=== PATIENT | female | born 1985 | race Caucasian/White ===

== ENCOUNTER 2023-03-12 12:21 | Emergency (ER) | payer SELFPAY ==
--- NOTE | ~2023-03-12 | XR_ITS ---
EXAMINATION: XR HAND, RIGHT CLINICAL INFORMATION: Right thumb pain/swelling COMPARISON: None available. TECHNIQUE: PA, lateral, and oblique views of the right hand. FINDINGS: The bones are intact. No fracture. Negative ulnar variance is noted. Joint spaces are maintained. No erosions or soft tissue calcifications. XR/XR hand RT min 3V IMPRESSION: No acute bony abnormality.
--- NOTE | 2023-03-12 12:38 | ED_ITS ---
HPI - Extremity Injury (Upper) General Chief Complaint: Extremity Injury, Upper Stated Complaint: Pain in thumb Time Seen by Provider: 03/12/23 12:51 Source: patient Mode of arrival: ambulatory Limitations: no limitations History of Present Illness HPI narrative: 37-year-old female presents with right thumb pain ongoing for the past week. Patient reports it is worse with movement, better at rest. Patient denies any associated trauma. She reports the distal aspect of her thumb. 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 Reports pain is severe. However she can not take NSAIDs secondary to bleeding ulcers. Patient tells me she is in a lot of pain. She is uncomfortable. Denies new numbness or tingling, fevers or chills. Related Data Previous Rx's Medication Instructions Recorded morphine 15 mg immediate release 15 mg PO Q6H PRN pain 5 days #10 03/12/23 tablet tabs prednisone 50 mg tablet 50 mg PO DAILY 5 days #5 tabs 03/12/23 Allergies Allergy/AdvReac Type Severity Reaction Status Date / Time Cephalosporins Allergy Anaphylaxis Verified 03/12/23 12:38 ciprofloxacin [From Cipro] Allergy Diarrhea Verified 03/12/23 12:39 latex Allergy Anaphylaxis Verified 03/12/23 12:38 Review of Systems Review of Systems: Constitutional : No Weight loss, No Fever, No Chills, No Fatigue, No Malaise ENT/Mouth : No sore throat, No Rhinorrhea Eyes: No Eye Pain, No Swelling, No Redness Cardiovascular : No Chest Pain, No SOB, No Dyspnea on Exertion, No Orthopnea, No Edema, No Palpitations Respiratory : No Cough, No Sputum, No Wheezing Gastrointestinal : No Nausea, No Vomiting, No Diarrhea, No Constipation, No abdominal Pain, No Hematochezia, No Melena Genitourinary : No Dysuria, No Urinary Frequency, No Hematuria, Musculoskeletal : + joint pain, No Myalgias, + Joint Swelling Skin : No Skin Lesions, No rash Neuro : No Weakness, No Numbness, No Dizziness, No Headache Psych : No Anxiety/Panic, No Depression All other systems reviewed and are negative Yes all other systems are reviewed and are negative PMFSH Past Medical History Attestation statement: The following information was validated with the patient. Source: old records reviewed and nursing notes reviewed Physical Exam Vital Signs: Vital Signs: Last Vital Signs Temp 98.2 F 03/12/23 12:39 Pulse 78 03/12/23 12:39 Resp 18 03/12/23 12:39 BP 110/71 03/12/23 12:39 Pulse Ox 96 03/12/23 12:39 O2 Del Method Room Air 03/12/23 12:39 BMI result Body Mass Index 20.6 Course Course Course Narrative: RME: 37yo F w/no sig PMHx c/o right thumb pain and swelling x1 week. reports low grade fever and chills +swelling and ttp to R thumb PIP. decreased ROM from pain. +hard to palpation, no fluctance or pointing XRs ordered Full HPI, ROS and PE to be performed by primary ED provider. Reevaluation(s) Reevaluation #1: Patient is in the lot of pain she has a history of bleeding ulcers. Nothing seems to be making the pain better. I explained to her NSAIDs increased risk of bleeding ulcers therefore not safe to give Toradol, naproxen or meloxicam. Will send a short script of morphine, went over safe narcotic taking, at outlined this on her discharge as well. Patient will be given morphine for home. And prednisone. Orthopedic outpatient recommended. Educated patient on diagnosis and treatment plan, answered all question, patient verbalizes understanding. At this time patient will be discharged home, advised to return with new or worsening symptoms. Educated on worrisome signs and symptoms and when to return. At this time I feel comfortable discharge home. Time: 13:04 Medical Decision Making Medical Decision Making [facility] Narrative: 37-year-old female presents with right thumb pain she is concerned it may be an abscess. Times about a week Physical exam +swelling and ttp to R thumb PIP. decreased ROM from pain. +hard to palpation, no fluctance History and physical exam concerning for gout versus pseudogout versus inflammatory arthritis. Unlikely abscess, neurovascular compromise, threat to Fox, arterial or venous occlusion, no signs of septic joint. No trauma unlikely fracture dislocation X-ray ordered from waiting room Differential Diagnosis Differential Diagnoses: The differential diagnosis associated with the pre sentation includes History and physical exam concerning for gout versus pseudogout versus inflammatory arthritis. Unlikely abscess, neurovascular compromise, threat to Fox, arterial or venous occlusion, no signs of septic joint. No trauma unlikely fracture dislocation Admission/Observation Consideration of admission/observation: Escalation of care including admission/observation considered Unlikely Independent Interpretation I performed an independent interpretation of an: Plain X-Ray Radiology Impression Discussion of test interpretation with radiology: I have reviewed the radiologist's reading. Prescription Management I considered prescription management with: Pain Medication Discharge Plan Discharge Clinical Impression: Inflammatory arthritis Patient Disposition: Home, Self-Care Instructions: Osteoarthritis (DC) Additional Instructions: Take your medications as prescribed. If you were prescribed antibiotics today, it is important that you take your medication to their entirety, do not skip any doses, do not finish them early. Follow-up with your primary care provider this week. Follow-up with orthopedics as needed Return to the emergency department with new or worsening symptoms. Such as fevers, chills, chest pain, shortness of breath, nausea, vomiting, dizziness, headache, vision changes, lethargy In case of emergency call 911 A narcotic has been sent to your pharmacy please take this as prescribed. Do not take more than the prescribed dose. Narcotic medications can cause addiction. Please do not mix them with alcohol. Do not take them while driving or operating machinery. Do not take them with any other narcotics. Do not share them with friends or family. They can cause constipation. Take them only for severe pain. Prescriptions: New prednisone 50 mg tablet 50 mg PO DAILY 5 Days Qty: 5 0RF morphine 15 mg tablet 15 mg PO Q6H PRN (Reason: pain) 5 Days Qty: 10 0RF Rx Instructions: Partial Fill upon patient request. Referrals: [facility] [Provider Group] - 1 week Gypsy Parra MD [Primary Care Provider] - 2 days Stand Alone Forms: Work/School Release
[2023-03-12 12:39] VITALS: BP 110/71; PULSE 78; RESP 18; TEMP 36.8; O2SAT 96; BMI 20.6
== END 2023-03-12 13:39 | disposition home or self-care (01) ==
PROVIDERS: Emergency Provider Emergency Medicine Emergency Medical Services; PCP Internal Medicine
DX: M18.9 Osteoarthritis of first carpometacarpal joint, unspecified (principal)
CPT/HCPCS: 73130; 99283

== ENCOUNTER 2023-05-29 21:32 | Emergency (ER) | payer OTHER, SELFPAY ==
--- NOTE | ~2023-05-29 | XR_ITS ---
EXAMINATION: XR ANKLE, LEFT CLINICAL INFORMATION: Evaluate for lateral malleolar fracture. Trauma, pain. COMPARISON: None available. TECHNIQUE: AP, lateral, and mortise views of the left ankle. FINDINGS: No fracture or subluxation. Nonspecific soft tissue swelling. No unexpected radiopaque foreign bodies. XR/XR ankle LT 2V IMPRESSION: 1. No acute fracture or malalignment. 2. Nonspecific soft tissue swelling.
[2023-05-29 22:08] VITALS: BP 139/75; PULSE 100; RESP 18; TEMP 36.2; O2SAT 97; BMI 20.9
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
[2023-05-30 00:12] VITALS: BP 101/56; PULSE 89; RESP 16; TEMP 36.8; O2SAT 100
[2023-05-30 01:23] VITALS: BP 119/65; PULSE 97; RESP 20; TEMP 37.3; O2SAT 97
[2023-05-30] MEDS: diazePAM 2 MG TABLET PO (01:23)
== END 2023-05-30 01:26 | disposition home or self-care (01) ==
PROVIDERS: Emergency Provider Emergency Medicine; PCP Internal Medicine
DX: S90.02XA Contusion of left ankle, initial encounter (principal); Y29.XXXA Contact with blunt object, undetermined intent, initial encounter; Y93.9 Activity, unspecified; Y92.481 Parking lot as the place of occurrence of the external cause; Y99.0 Civilian activity done for income or pay
CPT/HCPCS: 73600; 99283; 99284

== ENCOUNTER 2023-06-24 12:17 | Outpatient (AMB) | payer OTHER, SELFPAY ==
[2023-06-24 12:28] VITALS: BP 118/78; PULSE 109; O2SAT 99
--- NOTE | 2023-06-24 12:28 | MHC.OFFWIV ---
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 Patient Tobacco Use Status: Never used Tobacco Allergies Cephalosporins Allergy (Verified 06/24/23 12:29) Anaphylaxis ciprofloxacin [From Cipro] Allergy (Verified 06/24/23 12:29) Diarrhea latex Allergy (Verified 06/24/23 12:29) Anaphylaxis Medication List - Last Reconciled 06/24/23 by Vickie Wyman MD acetaminophen 500 mg PO Q6H PRN Do you need a note to return to daycare/school/sports/work: Yes HPI WINCH STRIPPER ?UTI HPI Details Patient is a 37-year-old female came in today to be evaluated for possible bladder infection Patient has been having symptoms for the past few days, she noticed blood in her urine yesterday Along with some discomfort left mid back Urine test shows positive leuk esterase 2+ and blood 3+ I am treating her with Macrobid 100 mg b.i.d. 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 Review system: No fever chills nausea vomiting chest pain shortness for breath PFSH Medical History Peptic ulcer disease Social History Patient Tobacco Use Status: Never used Tobacco Review of Systems Const All systems reviewed & are unremarkable except as noted in HPI and below Physical Exam Vital Signs: Last Vital Signs Pulse 109 H 06/24/23 12:28 BP 118/78 06/24/23 12:28 Pulse Ox 99 06/24/23 12:28 Oxygen Delivery Method Room Air 06/24/23 12:28 BMI result Body Mass Index 20.0 Const General: no acute distress Orientation/consciousness: patient oriented x3 Eyes General: appearance normal, both eyes and all related structures Resp Effort & Inspection: normal respiratory effort and able to speak in complete sentences Auscultation: clear to auscultation bilaterally General: Yes CVA tenderness (Left side) Back/Spine/Pelvis Back: CVA tenderness (Left side) Neuro General: patient oriented x3 Psych Mental Status: mental status grossly normal Results AMB Urinalysis, Automated UA Leukoctes 125 Hiram/uL Last Edit by Laura Lares MA on 06/24/23 12:38 UA Nitrite Negative Last Edit by Laura Lares MA on 06/24/23 12:38 UA Urobilinogen 0.2 mg/dL Last Edit by Laura Lares MA on 06/24/23 12:38 UA Protein 15 mg/dL Last Edit by Laura Lares MA on 06/24/23 12:38 UA pH 6.0 Last Edit by Laura Lares MA on 06/24/23 12:38 UA Blood 200 Darshan/uL Last Edit by Laura Lares MA on 06/24/23 12:38 UA Specific [place] 1.015 Last Edit by Laura Lares MA on 06/24/23 12:38 UA Ketone Negative Last Edit by Laura Lares MA on 06/24/23 12:38 UA Bilirubin mg/dL Last Edit by Laura Lares MA on 06/24/23 12:38 UA Glucose mg/dL Last Edit by Laura Lares MA on 06/24/23 12:38 Results Reviewed Results Reviewed: Laboratory Last Values Urine pH (Auto) 6.0 06/24/23 12:37 Specific [place] (Auto) 1.015 06/24/23 12:37 Urine Protein (Auto) 15 mg/dL 06/24/23 12:37 Urine Ketones (Auto) Negative 06/24/23 12:37 Urine Blood (Auto) 200 Darshan/uL 06/24/23 12:37 Urine Nitrite (Auto) Negative 06/24/23 12:37 Urine Urobilinogen (Auto) 0.2 mg/dL 06/24/23 12:37 Leukocyte Esterase (Auto) 125 Hiram/uL 06/24/23 12:37 Assessment & Plan Assessment & Plan (1) Acute pyelonephritis: Code(s): N10 - Acute pyelonephritis (2) Acute cystitis: Code(s): N30.00 - Acute cystitis without hematuria Qualifiers: Hematuria presence: with hematuria Qualified Code(s): N30.01 - Acute cystitis with hematuria Plan Patient is a 37-year-old female came in today to be evaluated for possible bladder infection Patient has been having symptoms for the past few days, she noticed blood in her urine yesterday Along with some discomfort left mid back Urine test shows positive leuk esterase 2+ and blood 3+ I am treating her with Macrobid 100 mg b.i.d. 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 Review system: No fever chills nausea vomiting chest pain shortness for breath Orders: Orders Urine Culture Today N30.00 - Acute cystitis without hematuria Medications: New nitrofurantoin monohyd/m-cryst 100 mg (Macrobid) must administer with a meal/food 100 mg PO Q12H 14 caps 0RF 7 days Discontinued prednisone Discontinued Reason: Patient Completed Course 50 mg PO DAILY 5 days 5 tabs 0RF cyclobenzaprine Discontinued Reason: Patient no longer taking 5 mg PO TID PRN 7 tabs 0RF muscle spasm tramadol Discontinued Reason: Patient no longer taking 50 mg PO BID PRN 4 tabs 0RF pain Coding Level of Care Code New Pt Level 4 (29723) Diagnoses Acute pyelonephritis N10 Acute cystitis with hematuria N30.01 Hematuria presence: with hematuria
== END 2023-06-24 12:59 | disposition home or self-care (01) ==
PROVIDERS: PCP Internal Medicine; Visit Provider Internal Medicine
DX: N10 Acute pyelonephritis (principal); N30.01 Acute cystitis with hematuria
CPT/HCPCS: 99204

== ENCOUNTER 2023-06-24 16:09 | Outpatient (REF) | payer OTHER, SELFPAY | END 2023-06-24 16:10 | disposition home or self-care (01) | LOC: HO.LNP 16:09 | PROVIDERS: Visit Provider Internal Medicine | DX: N30.00 Acute cystitis without hematuria (principal) | CPT/HCPCS: 87086; 87088; 87186 ==

== ENCOUNTER 2023-12-03 04:58 | Emergency (ER) | payer MEDICAID, SELFPAY ==
--- NOTE | ~2023-12-03 | XR_ITS ---
EXAMINATION: XR CHEST CLINICAL INFORMATION: Shortness of breath. COMPARISON: None available. TECHNIQUE: Frontal view of the chest was obtained. FINDINGS: No significant abnormality is noted involving the heart, lungs, mediastinum, bony thorax or soft tissues. XR/XR chest 1V IMPRESSION: Unremarkable examination. Electronically signed by: Sanjiv Escobar MD 12/03/2023 06:08 AM EDT
[2023-12-03 05:06] VITALS: BP 123/74; PULSE 75; RESP 18; TEMP 36.9; O2SAT 99; BMI 22.1
[2023-12-03 05:43] LABS: Hematocrit 36.8 % (37.0-47.0); Hemoglobin 12.7 g/dl (12.0-16.0); Mean Corpuscular HGB Conc 34.5 g/dl (31.0-35.0); Mean Corpuscular Volume 92.7 fL (80.0-98.0); Mean Platelet Volume 9.2 fL (9.4-12.3); Platelet Count 174 X10*3/uL (160-400); Red Blood Count 3.97 X10*6/uL (4.20-5.50); Red Cell Distribution Width 12.6 % (11.0-16.0)
[2023-12-03 05:48] LABS: White Blood Count 2.2 X10*3/uL (4.8-10.8)
[2023-12-03 05:55] LABS: Anion Gap 11 (12-20); Blood Urea Nitrogen 5 mg/dL (9-16); Calcium 8.6 mg/dL (8.4-10.2); Carbon Dioxide 25 mmol/L (22-29); Chloride 107 mmol/L (96-108); Creatinine Clr Calc Pharmacy 88.5; Estimated Glomerular Filt Rate > 60; Glucose Random 99 mg/dL (60-115); Potassium 3.7 mmol/L (3.3-5.1); Sodium 139 mmol/L (135-145)
--- NOTE | 2023-12-03 06:07 | MHC.EDTECH ---
This Tech assumed care of this pt upon arrival. pt changed over into a hospital gown. bloodwork sent to the lab for processing
[2023-12-03 06:20] LABS: Influenza A PCR POSITIVE (Negative); Influenza B PCR NEGATIVE (Negative); Resp Syncy Virus RNA Qual PCR NEGATIVE (Negative); SARS COV2 PCR INHOUSE NEGATIVE (Negative)
[2023-12-03 06:22] VITALS: BP 121/72; PULSE 72; RESP 16; TEMP 36.7; O2SAT 98
--- NOTE | 2023-12-03 06:43 | ED_ITS ---
HPI - General Adult General Chief complaint: Upper Respiratory Symptoms Stated complaint: SoB Time Seen by Provider: 12/03/23 06:39 Source: patient Mode of arrival: ambulatory Limitations: no limitations History of Present Illness ED Provider: Kecia Witt PA-C HPI narrative: Patient is a 38 year old assigned female at with a history of RA presenting to the emergency department today with cough and bilateral hand pain. Patient states that over the last 3 days she has had a cough and bilateral thumb pain. Patient states that the last time she was here she was given prednisone and pain medication that helped her hands significantly. Patient denies any dizziness, lightheadedness, abdominal pain, nausea, vomiting, fever, chills, blurry vision, double vision, loss of vision, chest pain, difficulty breathing, shortness of breath, back pain, night sweats, pain with urination, increased urinary frequency, increased urinary urgency, blood in her urine or stool, syncope or a near syncopal episode, recent trauma or falls, bowel incontinence, bladder incontinence, or any other complaints at this time. Onset (ago): day(s) (3) Relieving factors: none Exacerbating factors: none Associated symptoms: cough Treatments prior to arrival: none Related Data Previous Rx's ?Medication ?Instructions ?Recorded acetaminophen 500 mg tablet 500 mg PO Q6H PRN fever or pain 05/30/23 #20 tabs nitrofurantoin 100 mg PO Q12H 7 days #14 caps 06/24/23 monohydrate/macrocrystals 100 mg capsule (Macrobid) benzonatate 100 mg capsule 100 mg PO BID PRN cough 7 days #14 12/03/23 caps prednisone 20 mg tablet 50 mg (2.5 x 20 mg) PO DAILY 5 12/03/23 days #13 tabs tramadol 50 mg tablet 50 mg PO DAILY #3 tabs 12/03/23 Allergies Allergy/AdvReac Type Severity Reaction Status Date / Time Cephalosporins Allergy Anaphylaxis Verified 12/03/23 05:12 ciprofloxacin [From Cipro] Allergy Diarrhea Verified 12/03/23 05:12 latex Allergy Anaphylaxis Verified 12/03/23 05:12 Review of Systems 2 Constitutional: Constitutional: Reports no additional constitutional complaints, Denies chills, Denies fever(s) and Denies night sweats Eyes: Eyes: Reports no additional eye complaints, Denies blurry vision, Denies change in vision, Denies diplopia, Denies eye discharge, Denies loss of vision and Denies eye pain ENT: Denies dizziness Cardiovascular: Cardiovascular: Reports no additional cardiovascular complaints, Denies chest pain, Denies lightheadedness, Denies Loss of Consciousness and Denies dyspnea Respiratory: Respiratory: Reports no additional respiratory complaints, Reports cough and Denies dyspnea Gastrointestinal: Gastrointestinal: Reports no additional gastrointestinal complaints, Denies abdominal pain, Denies melena, Denies hematochezia, Denies change in bowel habits and Denies change in stool character Genitourinary: Genitourinary: Denies hematuria, Denies urinary frequency, Denies dysuria, Denies urinary incontinence, Denies urinary hesitancy and Denies urinary urgency Musculoskeletal: Musculoskeletal: Reports no additional musculoskeletal complaints, Denies numbness and Denies tingling Comments: bilateral hand pain Neurologic: Denies dizziness, Denies loss of vision, Denies numbness and Denies tingling Psychiatric: Psychiatric: Reports no additional psychiatric complaints Endocrine: Endocrine: Reports no additional endocrine complaints Hematologic/Lymphatic: Hematologic/Lymphatic: Reports no additional hematologic/lymphatic complaints Allergic/Immunologic: Allergic/Immunologic: Reports no additional allergic/immunologic complaints [facility] Past Medical History Attestation statement: The following information was validated with the patient. Source: old records reviewed and nursing notes reviewed Medical History Peptic ulcer disease Social History Social History Patient Tobacco Use Status: Never used Tobacco Advance Directives: No Advance Directives Information Provided: No Do you have a plan to hurt others: No Plan Physical Exam ED Vital Signs: Vital Signs - 24 hr 12/03/23 05:06 12/03/23 06:22 Temperature 98.4 F 98.1 F Pulse Rate 75 72 Respiratory Rate 18 16 Blood Pressure 123/74 121/72 Pulse Oximetry 99 98 Oxygen Delivery Method Room Air Room Air BMI result Body Mass Index 22.1 Const General: cooperative, no acute distress, alert and awake Nutritional Appearance: well nourished Orientation/consciousness: patient oriented x3 Limitations: no limitations HENMT Head: Yes normal to inspection and Yes atraumatic Ears: hearing grossly normal bilaterally and external ears normal General nose exam: Normal external nose present, no nasal discharge noted and no epistaxis Face and sinus: Yes normal facial exam, No abrasion and No laceration Mouth: Normal oral and palatal mucosa present, no drooling and no muffled voice Eyes General: appearance normal, both eyes and all related structures Periorbital: periorbital findings normal Eyelids: Yes eyelids normal Conjunctivae: conjunctivae normal Pupils: Equal, round and reactive pupils present EOM: EOMs intact bilaterally Neck Neck: Yes normal visual inspection, Yes full ROM and Yes no lymphadenopathy Chest Chest palpation & inspection: normal inspection of the chest Resp Effort & Inspection: normal respiratory effort and able to speak in complete sentences GI Inspection: Yes normal to inspection Neuro General: patient oriented x3 and moves all extremities Cranial nerves: Yes Equal, round and reactive pupils present Cognition (Neuro): normal cognition Extrem General: Yes normal to inspection, Yes full ROM and Yes capillary refill normal Psych Appearance: grossly normal Mental Status: mental status grossly normal Affect: normal affect Attitude: cooperative Thought process: Normal thought process present Thought content: Normal thought content present Insight: Good insight present (Psych) Medical Decision Making Medical Decision Making MDM Narrative: Patient is a 38 year old assigned female at with a history of RA presenting to the emergency department today with a cough and bilateral hand pain. Patient's physical exam was unremarkable. Patient's blood work was unremarkable. Patient's chest x-ray showed no acute process. Patient's COVID-19 and RSV tests were negative. Patient's Influenza test was positive. I explained my physical exam findings as well as all test results to the patient. I answered all questions asked by the patient. I stressed the importance of the patient taking her medication as directed (either prescribed or as the over the counter packaging recommends). I stressed the importance of the patient following up with her primary care provider. I stressed the importance of the patient returning to the emergency department immediately if her symptoms were to worsen or if she were to develop any dizziness, shortness of breath, difficulty breathing, chest pain, blurry vision, loss of vision, nausea, vomiting, abdominal pain, fever, chills, back pain, or any other complaints. Patient verbalized agreement and understanding with this treatment plan and discharge. Differential Diagnosis Differential Diagnoses: The differential diagnosis associated with the presentation includes Arthritis flare Joint pain COVID-19 Influenza RSV URI Admission/Observation Consideration of admission/observation: Escalation of care including admission/observation considered Patient would have been admitted to the hospital had her work up had any findings where hospital admission was appropriate and her clinical presentation warranted hospital admission. Lab Data [facility] Lab Attestation statement: I reviewed the patient's lab results. My interpretation of these results are in the [facility] Rationale portion of this note. 12/03/23 05:38 12/03/23 05:38 Labs: Lab Results 12/03/23 Range/Units 05:38 WBC 2.2 L (4.8-10.8) X10*3/uL RBC 3.97 L (4.20-5.50) X10*6/uL Hgb 12.7 (12.0-16.0) g/dl Hct 36.8 L (37.0-47.0) % MCV 92.7 (80.0-98.0) fL MCH 32.0 (27.0-33.0) pg MCHC 34.5 (31.0-35.0) g/dl RDW 12.6 (11.0-16.0) % Plt Count 174 (160-400) X10*3/uL MPV 9.2 L (9.4-12.3) fL Absolute Nucleated RBC 0.000 (0.0-0.012) X10*3/uL Nucleated RBC % (auto) 0.0 (0.0-0.2) /100WBC Sodium 139 (135-145) mmol/L Potassium 3.7 (3.3-5.1) mmol/L Chloride 107 (96-108) mmol/L Carbon Dioxide 25 (22-29) mmol/L Anion Gap 11 L (12-20) BUN 5 L (9-16) mg/dL Creatinine 0.72 (0.5-1.4) mg/dL Estim Creat Clear Calc 88.5 Estimated GFR > 60 Random Glucose 99 (60-115) mg/dL Calcium 8.6 (8.4-10.2) mg/dL Influenza Type A (PCR) POSITIVE A (Negative) Influenza Type B (PCR) NEGATIVE (Negative) RSV RNA Qual (PCR) NEGATIVE (Negative) SARS-CoV-2 RNA (RT-PCR) NEGATIVE (Negative) Independent Interpretation I performed an independent interpretation of an: Plain X-Ray Interpretation: My interpretation is in agreement with the radiologist's impression of this imaging study. L EXAMINATION: XR CHEST CLINICAL INFORMATION: Shortness of breath. COMPARISON: None available. TECHNIQUE: Frontal view of the chest was obtained. FINDINGS: No significant abnormality is noted involving the heart, lungs, mediastinum, bony thorax or soft tissues. XR/XR chest 1V IMPRESSION: Unremarkable examination. Electronically signed by: Sanjiv Escobar MD 12/03/2023 06:08 AM EDT RP Dictated By: Sanjiv Escobar MD Signed By: Electronically signed by Sanjiv Escobar MD 12/03/23 0608 Radiology Impression Discussion of test interpretation with radiology: I have reviewed the radiologist's reading. Prescription Management I considered prescription management with: Pain Medication (patient prescribed pain medication) and Antiviral (patient is out of the window for tamiflu) Discharge Plan Discharge Clinical Impression: Joint pain, Influenza, Cough Patient Disposition: Home, Self-Care Instructions: Influenza (DC), Arthralgia (ED), Acute Cough (ED) Additional Instructions: Follow up with your primary care provider. Return to the emergency department immediately if your symptoms worsen or if you develop any dizziness, shortness of breath, difficulty breathing, chest pain, blurry vision, loss of vision, nausea, vomiting, abdominal pain, fever, chills, back pain, or any other complaints. Prescriptions: New benzonatate 100 mg capsule 100 mg PO BID PRN (Reason: cough) 7 Days Qty: 14 0RF prednisone 20 mg tablet 50 mg PO DAILY 5 Days Qty: 13 0RF tramadol 50 mg tablet 50 mg PO DAILY Qty: 3 0RF No Action acetaminophen 500 mg tablet 500 mg PO Q6H PRN (Reason: fever or pain) Qty: 20 0RF nitrofurantoin monohyd/m-cryst [Macrobid] 100 mg capsule 100 mg PO Q12H 7 Days Qty: 14 0RF Rx Instructions: must administer with a meal/food Referrals: Gypsy Parra MD [Primary Care Provider] - Print Language: Slovenian
[2023-12-03] MEDS: traMADoL HCL 50 MG TABLET PO (07:12)
[2023-12-03] MEDS: Benzonatate 100 MG CAPSULE PO (07:12)
[2023-12-03] MEDS: predniSONE 10 MG TABLET 50 MG PO (07:12)
== END 2023-12-03 07:25 | disposition home or self-care (01) ==
PROVIDERS: Emergency Provider Emergency Medicine; PCP Internal Medicine
DX: J11.1 Influenza due to unidentified influenza virus with other respiratory manifestations (principal); R06.02 Shortness of breath; R05.9 Cough, unspecified; M79.642 Pain in left hand; M79.641 Pain in right hand; M25.542 Pain in joints of left hand; M25.541 Pain in joints of right hand; Z03.818 Encounter for observation for suspected exposure to other biological agents ruled out; Z79.899 Other long term (current) drug therapy
CPT/HCPCS: 0241U; 36415; 71045; 80048; 85027; 99283

== ENCOUNTER 2023-12-11 18:54 | Emergency (ER) | payer OTHER, MEDICAID, SELFPAY ==
--- NOTE | ~2023-12-11 | XR_ITS ---
EXAMINATION: XR CHEST CLINICAL INFORMATION: Cough. Concern for pneumonia. COMPARISON: December 03, 2023. TECHNIQUE: Frontal view of the chest was obtained. FINDINGS: No significant abnormality is noted involving the heart, lungs, mediastinum, bony thorax or soft tissues. XR/XR chest 1V IMPRESSION: Unremarkable examination. Electronically signed by: Sanjiv Escobar MD 12/11/2023 11:14 PM EDT RP
[2023-12-11 19:11] VITALS: BP 123/96; PULSE 81; RESP 18; TEMP 36.8; O2SAT 97; BMI 20.9
--- NOTE | 2023-12-11 19:18 | ED.GENADULT ---
HPI - General Adult General Chief complaint: Upper Respiratory Symptoms Stated complaint: SOB, asthma and flu Time Seen by Provider: 12/11/23 20:58 Source: patient and old records reviewed Mode of arrival: ambulatory Limitations: no limitations History of Present Illness ED Provider: HORACE BURROUGHS narrative: 38 yo female with PMH of RA and asthma on rescue inhaler just dx with flu A on 12/02 did not start tamiflu due to being out of window comes back as she feels her cough is still stuck in her chest and she doesn't feel much better after prednisone burst. She has had fevers and chills on and off. She is able to drink. She has rescue inhaler. She feels the congestion is stuck in her chest. MD complaint: chest congestion, doesn't feel well Onset (ago): day(s) (10+) Location: chest Radiation: non-radiation Severity: moderate Relieving factors: none Exacerbating factors: other (coughing) Associated symptoms: cough, fever/chills, loss of appetite, malaise and weakness Treatments prior to arrival: other (prednisone burst) Related Data Previous Rx's ?Medication ?Instructions ?Recorded acetaminophen 500 mg tablet 500 mg PO Q6H PRN fever or pain 05/30/23 #20 tabs nitrofurantoin 100 mg PO Q12H 7 days #14 caps 06/24/23 monohydrate/macrocrystals 100 mg capsule (Macrobid) benzonatate 100 mg capsule 100 mg PO BID PRN cough 7 days #14 12/03/23 caps prednisone 20 mg tablet 50 mg (2.5 x 20 mg) PO DAILY 5 12/03/23 days #13 tabs tramadol 50 mg tablet 50 mg PO DAILY #3 tabs 12/03/23 benzonatate 100 mg capsule 100 mg PO TID PRN cough #20 caps 12/11/23 doxycycline hyclate 100 mg capsule 100 mg PO BID 7 days #14 caps 12/11/23 ondansetron 4 mg disintegrating 4 mg PO Q8H PRN nausea and 12/11/23 tablet vomiting #20 tabs Allergies Allergy/AdvReac Type Severity Reaction Status Date / Time Cephalosporins Allergy Anaphylaxis Verified 12/11/23 19:13 ciprofloxacin [From Cipro] Allergy Diarrhea Verified 12/11/23 19:13 latex Allergy Anaphylaxis Verified 12/11/23 19:13 Review of Systems Review of Systems: Constitutional : No Fever, pos Chills ENT/Mouth : No Hoarseness, No sore throat, No Rhinorrhea Eyes: No Redness, No Discharge, No Vision Changes Cardiovascular : No Chest Pain, positive SOB, positive Dyspnea on Exertion, No Edema Respiratory : positive Cough, No Sputum, positive Wheezing, Gastrointestinal : pos Nausea, No Vomiting, No Diarrhea, No abdominal Pain Genitourinary : No Dysuria, No Hematuria Musculoskeletal : No joint pain, No Myalgias Skin : No rash Neuro : pos Weakness, No Numbness, No Headache Psych : No anxiety, depression Heme/Lymph: No Bruising, No Bleeding Endocrine : No Polyuria, No Polydipsia All other systems reviewed and are negative [facility] Past Medical History Attestation statement: The following information was validated with the patient. Source: old records reviewed Medical History Peptic ulcer disease Social History Social History Patient Tobacco Use Status: Never used Tobacco Advance Directives: No Advance Directives Information Provided: No Physical Exam ED Vital Signs: Vital Signs - 24 hr 12/11/23 19:11 12/11/23 20:33 12/11/23 22:04 Temperature 98.2 F 98.0 F 98.0 F Pulse Rate 81 63 63 Respiratory Rate 18 16 16 Blood Pressure 123/96 H 127/78 127/78 Pulse Oximetry 97 97 97 Oxygen Delivery Method Room Air Room Air Room Air BMI result Body Mass Index 20.9 Appearance: Alert. Oriented X3. No acute distress. Eyes: Pupils equal, round and reactive to light. ENT: Pharynx normal. Neck: Normal inspection. Neck supple. CVS: Normal heart rate and rhythm. Pulses normal. Respiratory: No respiratory distress. Breath sounds normal. Abdomen: Soft and nontender. Skin: Skin warm and dry. Normal skin color. Normal skin turgor. Extremities: No lower extremity edema. No calf ttp Neuro: Oriented X 3. No motor deficit. No sensory deficit. Course Course Course Narrative: RME: done by ANEESH Jansen. 38-year-old female with past medical history of asthma and recently diagnosed with flu on the in this hospital presents to ED for continuous chest tightness, and dry cough. Patient states no relief with albuterol inhaler. Lungs are clear. Negative for leg swelling, pitting edema, or calf pain. Chest x-ray ordered and ED bronchodilators. Patient is still having dry cough from being diagnosed with flu. patient states chills and bodyaches Medications Administered Discontinued Medications Generic Name Dose Route Start Last Admin Trade Name Freq PRN Reason Stop Dose Admin Benzonatate 100 mg 12/11/23 21:29 12/11/23 21:48 Benzonatate 100 Mg Capsule PO 12/11/23 21:30 100 mg ONCE ONE Administration Doxycycline Monohydrate 100 mg 12/11/23 21:29 12/11/23 21:48 Doxycycline Monohydrate 100 Mg Capsule PO 12/11/23 21:30 100 mg ONCE ONE Administration Ondansetron HCl 4 mg 12/11/23 21:29 12/11/23 21:48 Ondansetron Odt 4 Mg Tab.Rapdis TRANSLINGU 12/11/23 21:30 4 mg ONCE ONE Administration Medical Decision Making Medical Decision Making MDM Narrative: 38 yo female with PMH of RA and asthma on rescue inhaler just dx with flu A on 12/02 here with persistent chest congestion at this time will need repeat CXR and treat as presumed bronchitis - she has no hypoxia she is not toxic appearing. she has no wheezing on exam. At this time will defer further steroids. Will start on antibiotics and supportive medications with precautions to return. I do not see sig change on CXR from most recent. Differential Diagnosis Differential Diagnoses: The differential diagnosis associated with the presentation includes pneumonia, bronchitis, post viral cough Admission/Observation Consideration of admission/observation: Escalation of care including admission/observation considered VS stable, no hypoxia, no labored breathing, tolerating PO Independent Interpretation I performed an independent interpretation of an: Plain X-Ray (RLL opacity) Radiology Impression Discussion of test interpretation with radiology: I have reviewed the radiologist's reading. External Record Review External record reviewed: Inpatient record Prescription Management I considered prescription management with: Antibiotic and Other Discharge Plan Discharge Clinical Impression: Bronchitis Patient Disposition: Home, Self-Care Instructions: Acute Bronchitis (ED) Additional Instructions: return for any worsening symptoms or concerns finish all antibiotics take your rescue inhaler On doxycycline, do not take pills immediately before going to bed and swallow pills with plenty of water. Avoid direct sunlight, iron, antacids, and Pepto Bismol. Call your provider if you develop new ringing in your ears, new problems hearing, dizziness, difficulty swallowing, rash, abdominal discomfort, nausea, or diarrhea.? tessalon is toxic to children please be careful Prescriptions: New doxycycline hyclate 100 mg capsule 100 mg PO BID 7 Days Qty: 14 0RF ondansetron 4 mg tablet,disintegrating 4 mg PO Q8H PRN (Reason: nausea and vomiting) Qty: 20 0RF benzonatate 100 mg capsule 100 mg PO TID PRN (Reason: cough) Qty: 20 0RF No Action acetaminophen 500 mg tablet 500 mg PO Q6H PRN (Reason: fever or pain) Qty: 20 0RF benzonatate 100 mg capsule 100 mg PO BID PRN (Reason: cough) 7 Days Qty: 14 0RF prednisone 20 mg tablet 50 mg PO DAILY 5 Days Qty: 13 0RF tramadol 50 mg tablet 50 mg PO DAILY Qty: 3 0RF nitrofurantoin monohyd/m-cryst [Macrobid] 100 mg capsule 100 mg PO Q12H 7 Days Qty: 14 0RF Rx Instructions: must administer with a meal/food Stand Alone Forms: Work/School Release Interventions: ED Discharge Assessment Last Done: 12/11/23 22:04 Discharge Date/Time: 12/11/23 22:05 Print Language: Surinamese
[2023-12-11 20:33] VITALS: BP 127/78; PULSE 63; RESP 16; TEMP 36.7; O2SAT 97
[2023-12-11] MEDS: Doxycycline Monohydrate 100 MG CAPSULE PO (21:48)
[2023-12-11] MEDS: Ondansetron ODT 4 MG TAB.RAPDIS TRANSLINGU (21:48)
[2023-12-11] MEDS: Benzonatate 100 MG CAPSULE PO (21:48)
[2023-12-11 22:04] VITALS: BP 127/78; PULSE 63; RESP 16; TEMP 36.7; O2SAT 97
== END 2023-12-11 22:05 | disposition home or self-care (01) ==
PROVIDERS: Emergency Provider Emergency Medicine; PCP Internal Medicine
DX: J40 Bronchitis, not specified as acute or chronic (principal); R06.02 Shortness of breath; R50.9 Fever, unspecified; R05.9 Cough, unspecified
CPT/HCPCS: 71045; 99283; 99284

== ENCOUNTER 2024-02-24 23:51 | Emergency (ER) | payer MEDICAID, SELFPAY ==
--- NOTE | ~2024-02-24 | CT_ITS ---
EXAMINATION: CT ABDOMEN AND PELVIS WITHOUT CONTRAST CLINICAL INFORMATION: Right flank pain. COMPARISON: None available. TECHNIQUE: Multidetector volumetric imaging was performed from the superior aspect of the liver through the pubic symphysis. Sagittal and coronal reformatted images were obtained on the technologist's workstation. This CT examination was performed using dose optimization techniques as appropriate, variously including the following: *Automated exposure control *Adjustment of mA and/or kV according to patient size (this includes techniques or standardized protocols for targeted exams where dose is matched to indication/reason for exam; i.e. extremities or head) *Use of iterative reconstruction technique DLP: 273 mGy-cm FINDINGS: LUNG BASES: The visualized lung bases are unremarkable. LIVER, GALLBLADDER, AND BILIARY TREE: 1.3 cm diameter subcapsular focus is present in the right lobe of the liver and likely represents a benign, simple cyst 14 additional imaging follow-up. The liver is otherwise normal in appearance. The gallbladder is unremarkable with no evidence of radiopaque gallstones, gallbladder wall thickening, or obvious pericholecystic inflammatory changes. PANCREAS: Unremarkable. SPLEEN: Unremarkable. ADRENAL GLANDS: Unremarkable. KIDNEYS AND URETERS: Mild right perinephric inflammatory changes are noted. No perinephric fluid collections or definitive hydronephrosis identified. Mild ureterectasis to the proximal right ureter. Making allowances for a small number of pelvic phleboliths, no definitive ureteral calculi are identified. BLADDER: Unremarkable. GASTROINTESTINAL TRACT: The appendix is not visualized and may be extruded from visualization by visceral crowding and a paucity of retroperitoneal/intra-abdominal fat. Trace physiologic free intraperitoneal fluid is present in the pelvic cul-de-sac. No free intraperitoneal gas identified. No intestinal dilatation or mural thickening noted. ABDOMINAL WALL: No significant hernia is appreciated. LYMPH NODES: Normal. VASCULAR: Unremarkable. PELVIC VISCERA: Bilateral fallopian ligation clips are noted. OSSEOUS STRUCTURES: No suspicious skeletal abnormalities noted. CT/CT abdomen pelvis wo IV con IMPRESSION: *Mild right perinephric inflammatory changes and mild proximal right ureterectasis. Findings may be secondary to a recently passed calculus or otherwise nonvisualized calculus. No urolithiasis identified. No perinephric fluid collections. *The appendix is not visualized and may be obscured from visualization by visceral crowding. If clinical concern is present regarding acute appendicitis, consider further evaluation with IV contrast and CT of the abdomen and pelvis. Electronically signed by: Jae Raza MD 02/25/2024 04:23 AM [facility] NICHOLE
[2024-02-24 23:55] VITALS: BP 118/73; PULSE 87; RESP 18; TEMP 37.1; O2SAT 98; BMI 19.4
[2024-02-25 00:22] LABS: MANUAL DIFF FLAG NO
[2024-02-25 00:23] LABS: Basophils Percent Auto 0.3 % (0-2); Eosinophils Percent Auto 0.1 % (0-4); Hematocrit 39.5 % (37.0-47.0); Hemoglobin 13.9 g/dl (12.0-16.0); Imm Gran Abs Auto 0.02 X10*3/uL (0.00-0.03); Imm Gran Pct Auto 0.2 % (0.0-0.4); Lymphocytes Absolute Auto 0.8 X10*3/uL (1.2-4.9); Lymphocytes Percent Auto 7.5 % (20-40); Mean Corpuscular HGB Conc 35.2 g/dl (31.0-35.0); Mean Corpuscular Hemoglobin 31.8 pg (27.0-33.0); Mean Corpuscular Volume 90.4 fL (80.0-98.0); Mean Platelet Volume 9.1 fL (9.4-12.3); Monocytes Absolute Auto 0.9 X10*3/uL (0.1-1.2); Monocytes Percent Auto 8.4 % (2-11); Neutrophils Absolute Auto 8.6 x10*3/uL (2.0-8.3); Neutrophils Percent Auto 83.5 % (45-73); Platelet Count 167 X10*3/uL (160-400); Red Blood Count 4.37 X10*6/uL (4.20-5.50); Red Cell Distribution Width 11.9 % (11.0-16.0); White Blood Count 10.3 X10*3/uL (4.8-10.8)
[2024-02-25 00:31] LABS: Appearance Urine Hazy; Color Urine Yellow; Glucose Urine UA Negative (Negative); Leukocyte Esterase Urine Negative (Negative); Nitrite Urine Negative (Negative); Specific Gravity - Urine >= 1.030 (1.005-1.025); UMIC TRIGGER UACC YES; Urine Blood Small (1+) (Negative); Urine Ketones >=80 mg/dL (Negative); Urine Protein 30 (1+) mg/dL (Neg-Trace)
[2024-02-25 00:38] LABS: Bacteria Urine 2+ (None Seen); Hyaline Casts Urine 0-2 /LPF (0-2); Other Crystals Urine Present; UACC Culture Trigger YES; WBC Urine 21-50 /HPF (0-5)
[2024-02-25 00:45] LABS: Alanine Aminotransferase 10 U/L (0-31); Albumin Level 4.3 g/dL (3.5-5.0); Alkaline Phosphatase 62 U/L (39-117); Anion Gap 18 (12-20); Aspartate Amino Transferase 25 U/L (5-31); Bilirubin Total 0.9 mg/dL (0.0-1.0); Blood Urea Nitrogen 14 mg/dL (9-16); Calcium 9.1 mg/dL (8.4-10.2); Carbon Dioxide 20 mmol/L (22-29); Chloride 100 mmol/L (96-108); Creatinine Clr Calc Pharmacy 80.4; Estimated Glomerular Filt Rate > 60; Glucose Random 96 mg/dL (60-115); Lipase 9 U/L (8-78); Sodium 134 mmol/L (135-145); Total Protein 7.7 g/dL (6.5-8.0)
[2024-02-25 00:49] LABS: HCG Quantitative < 2 mIU/mL
--- NOTE | 2024-02-25 01:39 | ED.ABDPAIN ---
HPI - Abdominal Pain General Chief Complaint: Abdominal Pain Stated Complaint: kidney pain Time Seen by Provider: 02/25/24 01:36 Source: patient and old records reviewed Mode of arrival: ambulatory Limitations: no limitations History of Present Illness ED Provider: HORACE BURROUGHS narrative: 38 yo female with PMH of pyelonephritis and UTI here with c/o R flank pain and R abdominal pain with n/v no fevers x 3 days. She has had UTI and sepsis before - appears to have been treated at [facility]. She has allergies to cephalosporins and quinolones she is unsure if she has taken amoxicilin or PCN. She also notes prior kidney stones but no stents in past. She has urinary frequency, pain, fatigue. MD elicited complaint: flank pain Pertinent past history: kidney stones and past UTI Onset (ago): day(s) (3) Pain Consistency: constant Location: RLQ and R flank Severity: severe Quality: stabbing Radiation: none Migration to: no migration Exacerbating factors: vomiting and movement Relieving factors: nothing Context: history of similar episodes Associated symptoms: nausea, vomiting, chills and dysuria Treatments prior to arrival: NSAIDs Related Data Previous Rx's ?Medication ?Instructions ?Recorded acetaminophen 500 mg tablet 500 mg PO Q6H PRN fever or pain 05/30/23 #20 tabs nitrofurantoin 100 mg PO Q12H 7 days #14 caps 06/24/23 monohydrate/macrocrystals 100 mg capsule (Macrobid) benzonatate 100 mg capsule 100 mg PO BID PRN cough 7 days #14 12/03/23 caps prednisone 20 mg tablet 50 mg (2.5 x 20 mg) PO DAILY 5 12/03/23 days #13 tabs tramadol 50 mg tablet 50 mg PO DAILY #3 tabs 12/03/23 benzonatate 100 mg capsule 100 mg PO TID PRN cough #20 caps 12/11/23 doxycycline hyclate 100 mg capsule 100 mg PO BID 7 days #14 caps 12/11/23 ondansetron 4 mg disintegrating 4 mg PO Q8H PRN nausea and 12/11/23 tablet vomiting #20 tabs morphine 15 mg immediate release 15 mg PO Q6H PRN pain #12 tabs 02/25/24 tablet ondansetron 4 mg disintegrating 4 mg PO Q8H PRN nausea and 02/25/24 tablet vomiting #20 tabs sulfamethoxazole 800 1 tab PO BID #20 tabs 02/25/24 mg-trimethoprim 160 mg tablet (Bactrim DS) Allergies Allergy/AdvReac Type Severity Reaction Status Date / Time Cephalosporins Allergy Anaphylaxis Verified 02/24/24 23:56 ciprofloxacin [From Cipro] Allergy Diarrhea Verified 02/24/24 23:56 latex Allergy Anaphylaxis Verified 02/24/24 23:56 Review of Systems Review of Systems Constitutional : No Fever, pos Chills ENT/Mouth : No sore throat Eyes: No Eye Pain, No Swelling, No Redness Cardiovascular : No Chest Pain, No SOB Respiratory : No Cough, No Sputum, No Wheezing Gastrointestinal : positive Nausea, positive Vomiting, No Diarrhea, positive abdominal pain Genitourinary : positive Dysuria, positive urinary frequency, positive Flank Pain Musculoskeletal : No joint pain, No Myalgias Skin : No Skin Lesions, No rash Neuro : No Weakness, No Numbness, No Headache Psych : No Anxiety/Panic, No Depression Heme/Lymph: No Bruising, No Lymphadenopathy Endocrine : No Polyuria, No Polydipsia All other systems reviewed and are negative [facility] Past Medical History Attestation statement: The following information was validated with the patient. Source: old records reviewed Medical History Peptic ulcer disease Social History Social History Alcohol intake: current Alcohol intake frequency: holidays/special occasions only Patient Tobacco Use Status: Never used Tobacco Smoked in Last 30 Days: No Use of substances other than those prescribed or required for medical reasons: Yes Substance Use Type: Marijuana Advance Directives: No Advance Directives Information Provided: Yes Patient : No Physical Exam ED Vital Signs: Vital Signs - 24 hr 02/24/24 23:55 02/25/24 03:21 02/25/24 04:36 Temperature 98.7 F 99.0 F 98.5 F Pulse Rate 87 81 80 Respiratory Rate 18 14 16 Blood Pressure 118/73 100/53 L 105/61 Pulse Oximetry 98 99 100 Oxygen Delivery Method Room Air Room Air Room Air 02/25/24 05:06 Temperature 98.5 F Pulse Rate 80 Respiratory Rate 16 Blood Pressure 105/61 Pulse Oximetry 100 Oxygen Delivery Method Room Air BMI result Body Mass Index 19.4 Appearance: Alert. Oriented X3. appears in pain and uncomfortable no acute distress. Eyes: Pupils equal, round and reactive to light. ENT: Pharynx normal. Neck: Normal inspection. Neck supple. CVS: Normal heart rate and rhythm. Pulses normal. Respiratory: No respiratory distress Abdomen: moderate ttp in R abdomen and flank no rebound Skin: Skin warm and dry. Normal skin color. Normal skin turgor. Extremities: No lower extremity edema. No calf ttp Neuro: Oriented X 3. No motor deficit. No sensory deficit. Medical Decision Making Medical Decision Making [facility] Narrative: 38 yo female with PMH of pyelonephritis and UTI here with c/o R sided abdominal pain and flank pain at this time will need basic labs, CT scan for renal colic, IV morphine for pain and nausea medications. Differential Diagnosis Differential Diagnoses: The differential diagnosis associated with the presentation includes renal colic, obstruction, urinary pathology Admission/Observation Consideration of admission/observation: Escalation of care including admission/observation considered tolerating PO no WBC count not toxic no fevers neg lactic acid one time abx dose then outpatient bactrim Lab Data [facility] Lab Attestation statement: I reviewed the patient's lab results. 02/25/24 00:18 02/25/24 00:18 Labs: Lab Results 02/25/24 02/25/24 02/25/24 Range/Units 00:18 00:22 02:12 WBC 10.3 (4.8-10.8) X10*3/uL RBC 4.37 (4.20-5.50) X10*6/uL Hgb 13.9 (12.0-16.0) g/dl Hct 39.5 (37.0-47.0) % MCV 90.4 (80.0-98.0) fL MCH 31.8 (27.0-33.0) pg MCHC 35.2 H (31.0-35.0) g/dl RDW 11.9 (11.0-16.0) % Plt Count 167 (160-400) X10*3/uL MPV 9.1 L (9.4-12.3) fL Immature Gran % (Auto) 0.2 (0.0-0.4) % Neut % (Auto) 83.5 H (45-73) % Lymph % (Auto) 7.5 L (20-40) % [place] % (Auto) 8.4 (2-11) % Eos % (Auto) 0.1 (0-4) % Baso % (Auto) 0.3 (0-2) % Lymph # (Auto) 0.8 L (1.2-4.9) X10*3/uL [place] # (Auto) 0.9 (0.1-1.2) X10*3/uL Eos # (Auto) 0.0 (0.0-0.4) X10*3/uL Baso # (Auto) 0.0 (0.0-0.2) X10*3/uL Abs Immat Gran (auto) 0.02 (0.00-0.03) X10*3/uL Absolute Neuts (auto) 8.6 H (2.0-8.3) x10*3/uL Absolute Nucleated RBC 0.000 (0.0-0.012) X10*3/uL Nucleated RBC % (auto) 0.0 (0.0-0.2) /100WBC Sodium 134 L (135-145) mmol/L Potassium 4.0 (3.3-5.1) mmol/L Chloride 100 (96-108) mmol/L Carbon Dioxide 20 L (22-29) mmol/L Anion Gap 18 (12-20) BUN 14 (9-16) mg/dL Creatinine 0.75 (0.5-1.4) mg/dL Estim Creat Clear Calc 80.4 Estimated GFR > 60 Random Glucose 96 (60-115) mg/dL Lactic Acid 0.6 (0.5-2.0) mmol/L Calcium 9.1 (8.4-10.2) mg/dL Total Bilirubin 0.9 (0.0-1.0) mg/dL AST 25 (5-31) U/L ALT 10 (0-31) U/L Alkaline Phosphatase 62 (39-117) U/L Total Protein 7.7 (6.5-8.0) g/dL Albumin 4.3 (3.5-5.0) g/dL Lipase 9 (8-78) U/L Beta HCG, Quant < 2 mIU/mL Urine Color Yellow Urine Appearance Hazy Urine pH 6.0 (5.0-9.0) Ur Specific [place] >= 1.030 H (1.005-1.025) Urine Protein 30 (1+) H (Neg-Trace) mg/dL Urine Glucose (UA) Negative (Negative) mg/dL Urine Ketones >=80 (Negative) mg/dL Urine Blood Small (1+) H (Negative) Urine Nitrite Negative (Negative) Ur Leukocyte Esterase Negative (Negative) Urine RBC 3-5 H (0-2) /HPF Urine WBC 21-50 H (0-5) /HPF Ur Squamous Epith Cells 6-10 (0-2) /HPF Other Crystals Present Urine Bacteria 2+ (None Seen) Hyaline Casts 0-2 (0-2) /LPF Independent Interpretation I performed an independent interpretation of an: CT Scan (no obstruction) Radiology Impression Discussion of test interpretation with radiology: I have reviewed the radiologist's reading. External Record Review External record reviewed: Outpatient record Prescription Management I considered prescription management with: Pain Medication, Antibiotic and Other Medications Administered Discontinued Medications Generic Name Dose Route Start Last Admin Trade Name Freq PRN Reason Stop Dose Admin Diphenhydramine HCl 25 mg 02/25/24 02:00 02/25/24 02:23 Diphenhydramine Hcl 50 Mg/Ml Vial IVPUSH 02/25/24 02:01 25 mg ONCE ONE Administration Sodium Chloride 1,000 mls @ 999 mls/hr 02/25/24 03:21 02/25/24 04:30 Ns IV 02/25/24 04:21 Infused .Q1H1M ONE Infusion Meropenem 1 gm 02/25/24 04:29 02/25/24 04:35 Meropenem 1 Gm Vial IVPUSH 02/25/24 04:30 1 gm ONCE ONE Administration Metoclopramide HCl 10 mg 02/25/24 02:00 02/25/24 02:22 Metoclopramide Hcl 10 Mg/2 Ml Vial IVPUSH 02/25/24 02:01 10 mg ONCE ONE Administration Morphine Sulfate 4 mg 02/25/24 02:00 02/25/24 02:23 Morphine Sulfate 4 Mg/Ml Cartridge IVPUSH 02/25/24 02:01 4 mg ONCE ONE Administration Protocol Oxycodone HCl 5 mg 02/25/24 05:05 02/25/24 05:09 Oxycodone Hcl Immed Release 5 Mg Tablet PO 02/25/24 05:06 5 mg ONCE ONE Administration Critical Care Time Critical Care Time Critical Care Time: Yes Total Critical Care Time: 35 Attestation: pain improved with IV morphine, review of records, repeat exam I attest to this time spent taking care of the patient Discharge Plan Discharge Clinical Impression: Renal colic on right side Acute cystitis Qualifiers: Hematuria presence: with hematuria Qualified Code(s): N30.01 - Acute cystitis with hematuria Patient Disposition: Home, Self-Care Instructions: Urinary Tract Infection in Women (ED), Renal Colic (ED) Additional Instructions: stay hydrated return for worsening symptoms, unable to eat or drink, severe pain or fevers Prescriptions: New morphine 15 mg tablet 15 mg PO Q6H PRN (Reason: pain) Qty: 12 0RF Rx Instructions: partial fill okay; Partial Fill upon patient request. ondansetron 4 mg tablet,disintegrating 4 mg PO Q8H PRN (Reason: nausea and vomiting) Qty: 20 0RF sulfamethoxazole-trimethoprim [Bactrim DS] 800-160 mg tablet 1 tab PO BID Qty: 20 0RF No Action doxycycline hyclate 100 mg capsule 100 mg PO BID 7 Days Qty: 14 0RF ondansetron 4 mg tablet,disintegrating 4 mg PO Q8H PRN (Reason: nausea and vomiting) Qty: 20 0RF benzonatate 100 mg capsule 100 mg PO TID PRN (Reason: cough) Qty: 20 0RF acetaminophen 500 mg tablet 500 mg PO Q6H PRN (Reason: fever or pain) Qty: 20 0RF benzonatate 100 mg capsule 100 mg PO BID PRN (Reason: cough) 7 Days Qty: 14 0RF prednisone 20 mg tablet 50 mg PO DAILY 5 Days Qty: 13 0RF tramadol 50 mg tablet 50 mg PO DAILY Qty: 3 0RF nitrofurantoin monohyd/m-cryst [Macrobid] 100 mg capsule 100 mg PO Q12H 7 Days Qty: 14 0RF Rx Instructions: must administer with a meal/food Stand Alone Forms: Work/School Release Interventions: ED Discharge Assessment Last Done: 02/25/24 05:06 Discharge Date/Time: 02/25/24 05:19 Print Language: [place]
[2024-02-25] MEDS: Metoclopramide HCl 10 MG/2 ML VIAL IVPUSH (02:22)
[2024-02-25] MEDS: Morphine Sulfate 4 MG/ML CARTRIDGE IVPUSH (02:23)
[2024-02-25] MEDS: diphenhydrAMINE HCL 50 MG/ML VIAL 25 MG IVPUSH (02:23)
[2024-02-25 02:43] LABS: Lactic Acid 0.6 mmol/L (0.5-2.0)
--- NOTE | 2024-02-25 03:02 | PC.NURSE ---
pt verbalizing pain level decreased to 6/10 post medication administration. pt going to CT at this time. plan of care ongoing.
[2024-02-25 03:21] VITALS: BP 100/53; PULSE 81; RESP 14; TEMP 37.2; O2SAT 99
[2024-02-25] MEDS: 0.9 % Sodium Chloride 1,000 ML 999 ML IV (03:25)
--- NOTE | 2024-02-25 03:25 | PC.NURSE ---
pt noted to be hypotensive - provider notified/aware. IVF administered per provider order. pt waiting for CT results at this time. plan of care ongoing.
[2024-02-25] MEDS: Meropenem 1 GM VIAL IVPUSH (04:35)
[2024-02-25 04:36] VITALS: BP 105/61; PULSE 80; RESP 16; TEMP 36.9; O2SAT 100
[2024-02-25 05:06] VITALS: BP 105/61; PULSE 80; RESP 16; TEMP 36.9; O2SAT 100
[2024-02-25] MEDS: oxyCODONE HCl Immed Release 5 MG TABLET PO (05:09)
== END 2024-02-25 05:19 | disposition home or self-care (01) ==
PROVIDERS: Emergency Provider Emergency Medicine
DX: N30.01 Acute cystitis with hematuria (principal); N23 Unspecified renal colic; R11.2 Nausea with vomiting, unspecified; Z87.442 Personal history of urinary calculi
CPT/HCPCS: 36415; 74176; 80053; 81001; 83605; 83690; 84702; 85025; 87040; 87086; 87088; 87186; 96361; 96374; 96375; 99284; 99285; J1200; J2185; J2270; J2765

== ENCOUNTER 2024-04-09 14:40 | Emergency (ER) | payer MEDICAID, SELFPAY ==
--- NOTE | 2024-04-09 15:55 | ED.GENADULT ---
HPI - General Adult General Chief complaint: Abdominal Pain Stated complaint: N/V/D Time Seen by Provider: 04/09/24 19:44 Source: patient, RN notes reviewed and old records reviewed Mode of arrival: ambulatory Limitations: no limitations History of Present Illness ED Provider: Jimmy HPI narrative: 38-year-old female presents for evaluation of nausea vomiting, and diarrhea. Patient was seen here on 02/25/2024 for cystitis with concern for pyelonephritis. She was initially treated with Bactrim. She reports that she had an anaphylactic reaction to Bactrim and she went to another facility and was started on Augmentin for 2 weeks. She states that she was off the antibiotics for a couple of days before she was treated again with amoxicillin for a sinus infection Patient reports that she has had diarrhea that seemed to worsen when she stopped taking her antibiotics She does have a history of C diff dating back to 8 years ago Patient reports a history of tubal ligation, umbilical hernia repair and 3 separate revisions to the hernia She reports diffuse abdominal pain. She has been talking to a primary doctor and referred to the ER to be tested for C diff. She also reports that her vet told her that her dog was positive for ?Giardia. Patient reports that she has been taking both promethazine and Zofran for nausea and vomiting that was prescribed by her primary doctor She reports that she has an infectious disease specialist appointment on April 20, 2024 Related Data Previous Rx's ?Medication ?Instructions ?Recorded acetaminophen 500 mg tablet 500 mg PO Q6H PRN fever or pain 05/30/23 #20 tabs nitrofurantoin 100 mg PO Q12H 7 days #14 caps 06/24/23 monohydrate/macrocrystals 100 mg capsule (Macrobid) benzonatate 100 mg capsule 100 mg PO BID PRN cough 7 days #14 12/03/23 caps prednisone 20 mg tablet 50 mg (2.5 x 20 mg) PO DAILY 5 12/03/23 days #13 tabs tramadol 50 mg tablet 50 mg PO DAILY #3 tabs 12/03/23 benzonatate 100 mg capsule 100 mg PO TID PRN cough #20 caps 12/11/23 doxycycline hyclate 100 mg capsule 100 mg PO BID 7 days #14 caps 12/11/23 ondansetron 4 mg disintegrating 4 mg PO Q8H PRN nausea and 12/11/23 tablet vomiting #20 tabs morphine 15 mg immediate release 15 mg PO Q6H PRN pain #12 tabs 02/25/24 tablet ondansetron 4 mg disintegrating 4 mg PO Q8H PRN nausea and 02/25/24 tablet vomiting #20 tabs sulfamethoxazole 800 1 tab PO BID #20 tabs 02/25/24 mg-trimethoprim 160 mg tablet (Bactrim DS) fidaxomicin 200 mg tablet (Dificid) 200 mg PO BID 10 days #28 tabs 04/09/24 fluconazole 100 mg tablet 100 mg PO ONCE #1 tab 04/09/24 (Diflucan) ondansetron 4 mg disintegrating 4 mg PO Q8H PRN nausea and 04/09/24 tablet vomiting #20 tabs Allergies Allergy/AdvReac Type Severity Reaction Status Date / Time Cephalosporins Allergy Anaphylaxis Verified 04/09/24 15:58 ciprofloxacin [From Cipro] Allergy Diarrhea Verified 04/09/24 15:58 latex Allergy Anaphylaxis Verified 04/09/24 15:58 sulfamethoxazole Allergy Anaphylaxis Verified 04/09/24 15:58 [From Bactrim] trimethoprim [From Bactrim] Allergy Anaphylaxis Verified 04/09/24 15:58 Review of Systems Constitutional: Constitutional: Denies body ache(s), Reports chills, Reports fever(s), Denies headache(s), Reports lethargy, Reports malaise and Reports weakness Eyes: Eyes: Denies blurry vision ENT: Denies vertigo, Denies dizziness and Denies headache(s) Cardiovascular: Cardiovascular: Denies chest pain and Denies dyspnea Respiratory: Respiratory: Denies cough and Denies dyspnea Gastrointestinal: Gastrointestinal: Reports abdominal pain, Denies hematochezia, Reports diarrhea, Reports loose stools, Reports nausea and Reports vomiting Musculoskeletal: Musculoskeletal: Denies back pain Integumentary/Breasts: Skin/Breast: Denies rash Neurologic: Denies vertigo, Denies dizziness, Denies headache(s) and Reports weakness Psychiatric: Psychiatric: Denies anxiety PMFSH Past Medical History Medical History Peptic ulcer disease Social History Social History Alcohol intake: current Alcohol intake frequency: holidays/special occasions only Patient Tobacco Use Status: Never used Tobacco Substance Use Type: Marijuana Advance Directives: No Advance Directives Information Provided: No Do you have a plan to hurt others: No Plan Physical Exam ED Vital Signs: Vital Signs - 24 hr 04/09/24 15:57 04/09/24 19:57 Temperature 99.7 F 99.1 F Pulse Rate 91 76 Respiratory Rate 16 18 Blood Pressure 118/79 107/65 Pulse Oximetry 100 97 Oxygen Delivery Method Room Air Room Air BMI result Body Mass Index 20.2 Const General: healthy appearing, comfortable, no acute distress, alert and awake Nutritional Appearance: well nourished Orientation/consciousness: patient oriented x3 HENMT Head: Yes normocephalic and Yes atraumatic Eyes Eyelids: Yes eyelids normal Conjunctivae: conjunctivae normal Sclerae: sclerae normal Corneas: corneas normal Pupils: Equal, round and reactive pupils present EOM: EOMs intact bilaterally Neck Neck: Yes full ROM Resp Effort & Inspection: normal respiratory effort, able to speak in complete sentences and not labored Cardio Rate: regular rate Rhythm: regular rhythm GI Other: Diffuse abdominal tenderness without distention, rebound or guarding Inspection: No distended Palpation (GI): Soft to palpation, not firm, no guarding and not rigid Skin General skin exam: elasticity normal Neuro General: patient oriented x3 Cranial nerves: Yes Equal, round and reactive pupils present and Yes Bilaterally intact EOM present Cognition (Neuro): normal cognition Extrem Other: Moving all extremities well without any obvious deformities Course Course Course Narrative: This is a rapid medical exam performed by Emory Zaidi NP: Additional HPI, ROS, PE not included below will be deferred to primary provider. Patient is a 38-year-old female pmhx c. diff, pyelonephritis referred to the ED by PCP for nausea and vomiting since 4am, diarrhea as well. Took zofran and compazine ON [employer] with little relief. States PCP wants stool tested. Seeing ID on the . Plan: Medical Decision Making Medical Decision Making [facility]DM Narrative: 38-year-old female presents for evaluation of abdominal pain, vomiting and diarrhea. Her CBC shows no leukocytosis or anemia. Does show a significant left shift possibly related to an active infection. She has no significant chemistry abnormalities, BUN is slightly elevated to 19 with a normal creatinine of 0.64. The patient is not . She did test positive for C diff toxin gene. Given that she has findings consistent with C diff as well as multiple recent antibiotic use I feel it is appropriate to treat her with antibiotics we will start her on fidaxomicin 20 mg for 2 weeks. She also requested Diflucan for candidiasis prophylaxis. We will give her a dose now and a prescription for 1 month ago after taking 2 weeks. She will follow up with her outpatient providers. The patient is not septic and able to tolerate p.o. I do not feel that she requires admission for C diff. Differential Diagnosis Differential Diagnoses: The differential diagnosis associated with the presentation includes Abdominal pain Colitis C diff colitis GERD Lab Data MDM Lab Attestation statement: I reviewed the patient's lab results. As above 04/09/24 16:13 04/09/24 16:13 Labs: Lab Results 04/09/24 04/09/24 04/09/24 Range/Units 16:13 16:15 16:20 WBC 4.8 (4.8-10.8) X10*3/uL RBC 4.63 (4.20-5.50) X10*6/uL Hgb 14.5 (12.0-16.0) g/dl Hct 42.0 (37.0-47.0) % MCV 90.7 (80.0-98.0) fL MCH 31.3 (27.0-33.0) pg MCHC 34.5 (31.0-35.0) g/dl RDW 12.6 (11.0-16.0) % Plt Count 205 (160-400) X10*3/uL MPV 9.1 L (9.4-12.3) fL Immature Gran % (Auto) 0.2 (0.0-0.4) % Neut % (Auto) 89.9 H (45-73) % Lymph % (Auto) 4.6 L (20-40) % [place] % (Auto) 3.2 (2-11) % Eos % (Auto) 1.9 (0-4) % Baso % (Auto) 0.2 (0-2) % Lymph # (Auto) 0.2 L (1.2-4.9) X10*3/uL [place] # (Auto) 0.2 (0.1-1.2) X10*3/uL Eos # (Auto) 0.1 (0.0-0.4) X10*3/uL Baso # (Auto) 0.0 (0.0-0.2) X10*3/uL Abs Immat Gran (auto) 0.01 (0.00-0.03) X10*3/uL Absolute Neuts (auto) 4.3 (2.0-8.3) x10*3/uL Absolute Nucleated RBC 0.000 (0.0-0.012) X10*3/uL Nucleated RBC % (auto) 0.0 (0.0-0.2) /100WBC Sodium 139 (135-145) mmol/L Potassium 3.9 (3.3-5.1) mmol/L Chloride 106 (96-108) mmol/L Carbon Dioxide 24 (22-29) mmol/L Anion Gap 13 (12-20) BUN 19 H (9-16) mg/dL Creatinine 0.64 (0.5-1.4) mg/dL Estim Creat Clear Calc 98.2 Estimated GFR > 60 Random Glucose 101 (60-115) mg/dL Calcium 8.7 (8.4-10.2) mg/dL Magnesium 2.1 (1.6-2.6) mg/dL Total Bilirubin 0.7 (0.0-1.0) mg/dL AST 24 (5-31) U/L ALT 14 (0-31) U/L Alkaline Phosphatase 55 (39-117) U/L Total Protein 7.8 (6.5-8.0) g/dL Albumin 4.3 (3.5-5.0) g/dL Lipase 17 (8-78) U/L Beta HCG, Quant < 2 mIU/mL Urine Color Yellow Urine Appearance Clear Urine pH 6.0 (5.0-9.0) Ur Specific [place] 1.025 (1.005-1.025) Urine Protein Negative (Neg-Trace) mg/dL Urine Glucose (UA) Negative (Negative) mg/dL Urine Ketones Negative (Negative) mg/dL Urine Blood Negative (Negative) Urine Nitrite Negative (Negative) Ur Leukocyte Esterase Trace H (Negative) Urine RBC 0-2 (0-2) /HPF Urine WBC 0-5 (0-5) /HPF Ur Squamous Epith Cells 11-20 (0-2) /HPF Urine Bacteria 1+ (None Seen) Hyaline Casts 0-2 (0-2) /LPF C. difficile Tox B Gene POSITIVE A* (Negative) C. difficile Toxin A&B Negative (Negative) C. difficile Interpret SEE NOTE Influenza Type A (PCR) NEGATIVE (Negative) Influenza Type B (PCR) NEGATIVE (Negative) RSV RNA Qual (PCR) NEGATIVE (Negative) SARS-CoV-2 RNA (RT-PCR) NEGATIVE (Negative) Discharge Plan Discharge Clinical Impression: Clostridioides difficile diarrhea Patient Disposition: Home, Self-Care Instructions: C. Diff (Clostridioides Difficile) Infection (ED) Additional Instructions: You tested positive for the C diff toxin gene Take fidaxomicin twice daily for the next 14 days You may continue Zofran as needed for nausea and vomiting. I prescribed a dose of Diflucan to take after your last dose of antibiotics Follow-up with your primary doctor and your infectious disease specialist as planned. We will call you if there are any other positive results on your stool sample Prescriptions: New Dificid 200 mg tablet 200 mg PO BID 10 Days Qty: 28 0RF ondansetron 4 mg tablet,disintegrating 4 mg PO Q8H PRN (Reason: nausea and vomiting) Qty: 20 0RF fluconazole [Diflucan] 100 mg tablet 100 mg PO ONCE Qty: 1 0RF Rx Instructions: To be taken in 2 weeks upon completion of antibiotics No Action doxycycline hyclate 100 mg capsule 100 mg PO BID 7 Days Qty: 14 0RF ondansetron 4 mg tablet,disintegrating 4 mg PO Q8H PRN (Reason: nausea and vomiting) Qty: 20 0RF benzonatate 100 mg capsule 100 mg PO TID PRN (Reason: cough) Qty: 20 0RF acetaminophen 500 mg tablet 500 mg PO Q6H PRN (Reason: fever or pain) Qty: 20 0RF benzonatate 100 mg capsule 100 mg PO BID PRN (Reason: cough) 7 Days Qty: 14 0RF prednisone 20 mg tablet 50 mg PO DAILY 5 Days Qty: 13 0RF tramadol 50 mg tablet 50 mg PO DAILY Qty: 3 0RF morphine 15 mg tablet 15 mg PO Q6H PRN (Reason: pain) Qty: 12 0RF Rx Instructions: partial fill okay; Partial Fill upon patient request. ondansetron 4 mg tablet,disintegrating 4 mg PO Q8H PRN (Reason: nausea and vomiting) Qty: 20 0RF sulfamethoxazole-trimethoprim [Bactrim DS] 800-160 mg tablet 1 tab PO BID Qty: 20 0RF nitrofurantoin monohyd/m-cryst [Macrobid] 100 mg capsule 100 mg PO Q12H 7 Days Qty: 14 0RF Rx Instructions: must administer with a meal/food Stand Alone Forms: Work/School Release Print Language: Italian
[2024-04-09 15:57] VITALS: BP 118/79; PULSE 91; RESP 16; TEMP 37.6; O2SAT 100; BMI 20.2
[2024-04-09 16:26] LABS: MANUAL DIFF FLAG NO
[2024-04-09 16:30] LABS: Basophils Percent Auto 0.2 % (0-2); Eosinophils Absolute Auto 0.1 X10*3/uL (0.0-0.4); Eosinophils Percent Auto 1.9 % (0-4); Hemoglobin 14.5 g/dl (12.0-16.0); Imm Gran Abs Auto 0.01 X10*3/uL (0.00-0.03); Imm Gran Pct Auto 0.2 % (0.0-0.4); Lymphocytes Absolute Auto 0.2 X10*3/uL (1.2-4.9); Lymphocytes Percent Auto 4.6 % (20-40); Mean Corpuscular HGB Conc 34.5 g/dl (31.0-35.0); Mean Corpuscular Hemoglobin 31.3 pg (27.0-33.0); Mean Corpuscular Volume 90.7 fL (80.0-98.0); Mean Platelet Volume 9.1 fL (9.4-12.3); Monocytes Absolute Auto 0.2 X10*3/uL (0.1-1.2); Monocytes Percent Auto 3.2 % (2-11); Neutrophils Absolute Auto 4.3 x10*3/uL (2.0-8.3); Neutrophils Percent Auto 89.9 % (45-73); Platelet Count 205 X10*3/uL (160-400); Red Blood Count 4.63 X10*6/uL (4.20-5.50); Red Cell Distribution Width 12.6 % (11.0-16.0); White Blood Count 4.8 X10*3/uL (4.8-10.8)
[2024-04-09 16:31] LABS: Appearance Urine Clear; Color Urine Yellow; Glucose Urine UA Negative (Negative); Leukocyte Esterase Urine Trace (Negative); Nitrite Urine Negative (Negative); Specific Gravity - Urine 1.025 (1.005-1.025); UMIC TRIGGER UACC YES; Urine Blood Negative (Negative); Urine Ketones Negative (Negative); Urine Protein Negative (Neg-Trace)
[2024-04-09 16:40] LABS: Alanine Aminotransferase 14 U/L (0-31); Albumin Level 4.3 g/dL (3.5-5.0); Alkaline Phosphatase 55 U/L (39-117); Anion Gap 13 (12-20); Aspartate Amino Transferase 24 U/L (5-31); Bilirubin Total 0.7 mg/dL (0.0-1.0); Blood Urea Nitrogen 19 mg/dL (9-16); Calcium 8.7 mg/dL (8.4-10.2); Carbon Dioxide 24 mmol/L (22-29); Chloride 106 mmol/L (96-108); Creatinine Clr Calc Pharmacy 98.2; Estimated Glomerular Filt Rate > 60; Glucose Random 101 mg/dL (60-115); Lipase 17 U/L (8-78); Magnesium 2.1 mg/dL (1.6-2.6); Potassium 3.9 mmol/L (3.3-5.1); Sodium 139 mmol/L (135-145); Total Protein 7.8 g/dL (6.5-8.0)
[2024-04-09 16:49] LABS: HCG Quantitative < 2 mIU/mL
[2024-04-09 17:08] LABS: Bacteria Urine 1+ (None Seen); Hyaline Casts Urine 0-2 /LPF (0-2); RBC Urine 0-2 /HPF (0-2); WBC Urine 0-5 /HPF (0-5)
[2024-04-09 17:10] LABS: Influenza A PCR NEGATIVE (Negative); Influenza B PCR NEGATIVE (Negative); Resp Syncy Virus RNA Qual PCR NEGATIVE (Negative); SARS COV2 PCR INHOUSE NEGATIVE (Negative)
[2024-04-09 18:38] LABS: CDIFF Internal ctrl Dots and bkg OK (V); CDiff Gene PCR POSITIVE (Negative); CDiff Toxin Negative (Negative)
[2024-04-09 19:57] VITALS: BP 107/65; PULSE 76; RESP 18; TEMP 37.3; O2SAT 97
[2024-04-09] MEDS: Acetaminophen 325 MG TABLET 650 MG PO (21:14)
[2024-04-09] MEDS: Fluconazole 100 MG TABLET PO (21:14)
[2024-04-09] MEDS: Fidaxomicin 200 MG TABLET PO (21:14)
[2024-04-10 09:27] LABS: Adenovirus F 40/41 Not Detected (Not Detect.); Astrovirus Not Detected (Not Detect.); Campylobacter Not Detected (Not Detect.); Cryptosporidium Not Detected (Not Detect.); Cyclospora cayetanensis Not Detected (Not Detect.); E. coli EAEC Not Detected (Not Detect.); E. coli EPEC Not Detected (Not Detect.); E. coli ETEC Not Detected (Not Detect.); E. coli STEC Not Detected (Not Detect.); Entamoeba histolytica Not Detected (Not Detect.); Giardia lamblia Not Detected (Not Detect.); Plesiomonas shigelloides Not Detected (Not Detect.); Rotavirus A Not Detected (Not Detect.); Salmonella Not Detected (Not Detect.); Sapovirus Not Detected (Not Detect.); Shigella sp./EIEC Not Detected (Not Detect.); Vibrio Not Detected (Not Detect.); Vibrio Cholerae Not Detected (Not Detect.); Yersinia enterocolitica Not Detected (Not Detect.)
[2024-04-12 15:00] LABS: Norovirus Stool PCR DETECTED
== END 2024-04-09 21:17 | disposition home or self-care (01) ==
PROVIDERS: Registered Nurse Emergency; Emergency Provider Emergency Medicine Emergency Medical Services
DX: A04.72 Enterocolitis due to Clostridium difficile, not specified as recurrent (principal); R10.2 Pelvic and perineal pain; R11.2 Nausea with vomiting, unspecified; Z03.818 Encounter for observation for suspected exposure to other biological agents ruled out; Z79.899 Other long term (current) drug therapy
CPT/HCPCS: 0241U; 36415; 80053; 81001; 81003; 83690; 83735; 84702; 85025; 87324; 87493; 87507; 99283; 99284

== ENCOUNTER 2024-07-12 13:47 | Outpatient (AMB) | payer MEDICAID, SELFPAY ==
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
[2024-07-12 13:55] VITALS: BP 119/72; PULSE 103; O2SAT 100; BMI 21.7
== END 2024-07-12 14:40 | disposition home or self-care (01) ==
LOC: HO.PMC 13:47
PROVIDERS: PCP Internal Medicine; Referring Provider Internal Medicine; Visit Provider Nurse Practitioner Family
DX: M47.812 Spondylosis without myelopathy or radiculopathy, cervical region (principal); M62.838 Other muscle spasm; M25.511 Pain in right shoulder; M25.512 Pain in left shoulder; Z87.828 Personal history of other (healed) physical injury and trauma; M54.2 Cervicalgia
CPT/HCPCS: 99204

== ENCOUNTER → 2024-07-12 13:47 | Outpatient (BNVA) | payer MEDICAID, SELFPAY | PROVIDERS: PCP Internal Medicine; Referring Provider Internal Medicine; Visit Provider Nurse Practitioner Family | DX: M47.812 Spondylosis without myelopathy or radiculopathy, cervical region (principal); G89.29 Other chronic pain; M62.838 Other muscle spasm; M25.511 Pain in right shoulder; M25.512 Pain in left shoulder; Z87.828 Personal history of other (healed) physical injury and trauma | CPT/HCPCS: 99202 ==

== ENCOUNTER 2024-08-08 23:25 | Emergency (ER) | payer MEDICAID, SELFPAY ==
--- NOTE | ~2024-08-08 | XR_ITS ---
CLINICAL HISTORY: wrist pain Right wrist three views Comparison: None Findings: No acute fracture or dislocation identified. No acute focal bony abnormality. No radiopaque foreign body noted. Impression: No acute bony abnormality This document has been electronically signed by: Howard Villa MD on 08/09/2024 00:35:09
[2024-08-08 23:28] VITALS: BP 137/81; PULSE 108; RESP 22; TEMP 36.7; O2SAT 97; BMI 21.3
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
[2024-08-09] MEDS: Ketorolac Tromethamine 60 MG/2 ML VIAL IM (01:15)
[2024-08-09] MEDS: Morphine Sulfate Immed Release 15 MG TABLET PO (01:16)
[2024-08-09 01:20] VITALS: BP 137/81; PULSE 108; RESP 22; TEMP 36.7; O2SAT 97
== END 2024-08-09 01:20 | disposition home or self-care (01) ==
PROVIDERS: Emergency Provider Emergency Medicine Emergency Medical Services; PCP Internal Medicine
DX: M25.531 Pain in right wrist (principal); S63.601A Unspecified sprain of right thumb, initial encounter; X58.XXXA Exposure to other specified factors, initial encounter; Y93.9 Activity, unspecified; Y92.9 Unspecified place or not applicable; Y99.9 Unspecified external cause status
CPT/HCPCS: 29125; 73110; 96372; 99283; 99284; J1885

== ENCOUNTER → 2024-08-08 23:40 | Outpatient (BNV) | payer MEDICAID, SELFPAY | PROVIDERS: Emergency Provider Emergency Medicine Emergency Medical Services; PCP Internal Medicine; Visit Provider Radiology Diagnostic Radiology | DX: M25.531 Pain in right wrist (principal) | CPT/HCPCS: 73110 ==

== ENCOUNTER 2024-08-17 10:32 | Outpatient (AMB) | payer MEDICAID, SELFPAY ==
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
[2024-08-17 10:41] VITALS: BMI 20.9
--- OUTSIDE RECORDS SUMMARY | 2024-08-17 12:09 | XMS_ITS | Data Portability ---
Author Organization [facility] [address] Address [address] [place] [id number] Assessment No assessment recorded. Plan of Treatment Reminders Order Date Submit Date Provider Last Modified By Organization Details Last Modified Time Details Appointments None record ed. Lab None record ed. Referral None record ed. Procedures None record ed. Surgeries None record ed. Imaging None record ed. Medication Orders None record ed. Patient TargetsNo targets recorded. Patient InstructionsNo instructions recorded. Reason for Referral None Reported. Procedures Surgical History Date Name Laterality Status Provider Name and Address Organization Details Recorded Time [facility] Send Out Template NON DOT completed Milena Jalloh [facility] 09/03/2022 18:31:39 Imaging Results None recorded. Procedure Notes None recorded. Medical Equipment None Reported. Medications Name Sig Start Date Stop Date Status Note LastModified by Organization Details LastModified Time ondansetron 8 mg disintegrating tablet active Not Available Not Available Not Available hydromorphone 2 mg tablet active Not Available Not Available Not Available hydrocodone-ho matropine 5 mg-1.5 mg/5 mL oral solution active Not Available Not Availabl e Not Available Adderall XR 10 mg capsule,extend ed release active Not Available Not Available N ot Available diclofenac sodium 50 mg tablet,delayed release active Not Available Not Available Not Available ondansetron 4 mg disintegrating tablet active Not Available Not Available Not Available diazepam 5 mg tablet active Not Available Not Available Not Available amoxicillin 875 mg-potassium clavulanate 125 mg tablet TAKE 1 TABLET BY MOUTH EVERY 12 HOURS FOR 10 DAYS active Not Available Not Available No t Available oxycodone 5 mg tablet active Not Available Not Available Not Available Adderall XR 5 mg capsule,extend ed release active Not Available Not Available N ot Available levonorgestrel 0.15 mg-ethinyl estradiol 30 mcg tablets,3 mos pack(91) active Not Available Not Available Not Available BinaxNOW COVID-19 Ag Self Test kit TEST DIRECTED TODAY active Not Available Not Available No t Available Paxlovid 300 mg (150 mg x 2)-100 mg tablets in a dose pack active Not Available Not Available No t Available Vitals None Recorded Social History None recorded. Functional Status None recorded. Mental Status None recorded. Family History Nothing Reported. Medical History No medical history recorded. Gynecological HistoryNo gynecological history recorded. Obstetrics History GPAL:G 0 P 0 0 0 0 Past Encounters Encounter ID Performer Location Encounter Start Date Encounter Closed Date Diagnosis/Indication Diagnosis SNOMED-CT Code Diagnosis ICD10 Code Diagnosis Note [id number] [facility] [address] [address] 10/28/2017 18:57:23 10/28/2017 19:55:[id number] [place] [address] [address] [address] 10/05/2015 08:51:10 10/05/2015 10:18:[id number] [place] [address] [address] [address] 11/02/2017 13:45:04 11/02/2017 14:34:[id number] [place] [address] [address] [address] 01/14/2016 14:24:14 01/14/2016 15:00:[id number] [place] [address] [address] [facility] [address] [place] [id number] 05/29/2021 16:17:18 05/29/2021 18:49:27 [id number] [place] [address] [facility] [address] [place] [address] 09/03/2022 17:33:29 09/03/2022 18:44:20 History and physical examination, occupation [id number] Z02.1 Health Concerns Section Related Observation LastModified by Organization Víctor clarke LastModified Time None Recorded Concern Status LastModified by Organization Details LastModified Time None Recorded Advance Directives Directive None Recorded Payers Insurance Date Sequence Insurance Name Policy Number Policy Moreau Covered Member ID Moreau Member ID Guarantor Name 09/03/2022 1 [facility] (MEDICAID HMO) Grisel Sage [id number] Grisel Sage 09/03/2022 [facility] [employer] Grisel Sage OBGyn Episode No OBEpisode recorded.
== END 2024-08-17 11:35 | disposition home or self-care (01) ==
LOC: HO.HOS 10:33
PROVIDERS: PCP Internal Medicine
DX: Q79.60 Ehlers-Danlos syndrome, unspecified (principal); M67.441 Ganglion, right hand; S63.599A Other specified sprain of unspecified wrist, initial encounter; M65.4 Radial styloid tenosynovitis [de Quervain]; R20.0 Anesthesia of skin; R20.2 Paresthesia of skin
CPT/HCPCS: 99203; G2211

== ENCOUNTER → 2024-08-17 10:32 | Outpatient (BNVA) | payer MEDICAID, SELFPAY | PROVIDERS: PCP Internal Medicine | DX: Q79.60 Ehlers-Danlos syndrome, unspecified (principal); M67.441 Ganglion, right hand; M65.4 Radial styloid tenosynovitis [de Quervain]; R20.0 Anesthesia of skin; R20.2 Paresthesia of skin; S63.591A Other specified sprain of right wrist, initial encounter; X58.XXXA Exposure to other specified factors, initial encounter; Y93.9 Activity, unspecified; Y92.9 Unspecified place or not applicable; Y99.9 Unspecified external cause status | CPT/HCPCS: 99202 ==

== ENCOUNTER 2024-09-24 17:14 | Emergency (ER) | payer OTHER, SELFPAY ==
--- NOTE | ~2024-09-24 | CT_ITS ---
CLINICAL HISTORY: right flank pain CT abdomen and pelvis without contrast Comparison: CT/SR - CT ABDOMEN PELVIS WO IV CON - 02/25/24 03:00 EST Findings: Examination is limited by without contrast. Lung bases are clear. No pleural effusion. Limited evaluation of the hypodense lesion in the liver. Pancreas, Spleen and both adrenals show normal size, shape and attenuation on present unenhanced scan. No CBD dilatation. No calcified gallstone in the gallbladder. Gallbladder is contracted. Both kidneys reveal normal in size, shape, position and attenuation. No kidney stone. No hydronephrosis. The IVC, aorta and portal vein are within normal position and caliber. No evidence of retroperitoneal lymphadenopathy or ascites. Calcifications of the pelvis are likely to be phleboliths. The visible parts of the bowel loops show no obvious mass lesions or wall thickening. Moderate amount of fecal material within the colon. Appendix is not visualized. Urinary bladder reveals normal lumen and marroquin. The pelvic organs are unremarkable. Bilateral tubal ligation. Visualized osseous structures appear unremarkable. No lytic or sclerotic bony lesion. IMPRESSION: No evidence of kidney stone. Appendix is not visualized. Additional findings as above. This document has been electronically signed by: Casey Rojas MD on 09/24/2024 21:35:03
[2024-09-24 17:46] VITALS: BP 129/79; PULSE 80; RESP 16; TEMP 36.7; O2SAT 100; BMI 21.1
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
[2024-09-24 19:07] LABS: MANUAL DIFF FLAG NO
[2024-09-24 19:09] LABS: Hematocrit 35.8 % (37.0-47.0); Hemoglobin 12.3 g/dl (12.0-16.0); Imm Gran Abs Auto 0.02 X10*3/uL (0.00-0.03); Imm Gran Pct Auto 0.4 % (0.0-0.4); Lymphocytes Absolute Auto 1.8 X10*3/uL (1.2-4.9); Mean Corpuscular HGB Conc 34.4 g/dl (31.0-35.0); Mean Corpuscular Hemoglobin 31.2 pg (27.0-33.0); Mean Corpuscular Volume 90.9 fL (80.0-98.0); NRBC Abs Auto 0.000 X10*3/uL (0.0-0.012); NRBC Pct Auto 0.0 /100WBC (0.0-0.2); Platelet Count 213 X10*3/uL (160-400); Red Blood Count 3.94 X10*6/uL (4.20-5.50); White Blood Count 5.5 X10*3/uL (4.8-10.8)
[2024-09-24 19:11] VITALS: BP 128/72; PULSE 60; RESP 16; TEMP 36.7; O2SAT 99
[2024-09-24 19:14] LABS: Appearance Urine Clear; Glucose Urine UA Negative (Negative); PH 6.5 (5.0-9.0); Specific Gravity - Urine 1.010 (1.005-1.025); UMIC TRIGGER UACC YES
[2024-09-24 19:16] LABS: UACC Culture Trigger YES
[2024-09-24 19:36] LABS: Alanine Aminotransferase 14 U/L (0-31); Albumin Level 4.5 g/dL (3.5-5.0); Alkaline Phosphatase 52 U/L (39-117); Anion Gap 10 (12-20); Aspartate Amino Transferase 23 U/L (5-31); Blood Urea Nitrogen 15 mg/dL (9-16); Calcium 9.0 mg/dL (8.4-10.2); Carbon Dioxide 27 mmol/L (22-29); Chloride 105 mmol/L (96-108); Creatinine Clr Calc Pharmacy 106.8; Estimated Glomerular Filt Rate > 60; Lipase 38 U/L (8-78); Potassium 3.7 mmol/L (3.3-5.1); Sodium 138 mmol/L (135-145); Total Protein 7.1 g/dL (6.5-8.0)
[2024-09-24 20:00] VITALS: BP 122/75; PULSE 74; RESP 16; TEMP 36.6; O2SAT 99
[2024-09-24] MEDS: oxyCODONE HCl Immed Release 5 MG TABLET 10 MG PO (20:45)
[2024-09-24 22:10] VITALS: BP 122/75; PULSE 74; RESP 16; TEMP 36.6; O2SAT 99
== END 2024-09-24 22:13 | disposition home or self-care (01) ==
PROVIDERS: Physician Assistant; Emergency Provider Emergency Medicine; PCP Internal Medicine
DX: R10.9 Unspecified abdominal pain (principal); N39.0 Urinary tract infection, site not specified; Z87.440 Personal history of urinary (tract) infections; Q79.60 Ehlers-Danlos syndrome, unspecified; Z79.899 Other long term (current) drug therapy
CPT/HCPCS: 36415; 74176; 80053; 81001; 83690; 84702; 85025; 86140; 87086; 96372; 99283; 99284; J1885

== ENCOUNTER → 2024-09-24 19:55 | Outpatient (BNV) | payer OTHER, SELFPAY | PROVIDERS: Emergency Provider Emergency Medicine; PCP Internal Medicine; Visit Provider Nuclear Medicine | DX: R10.84 Generalized abdominal pain (principal) | CPT/HCPCS: 74176 ==

== ENCOUNTER 2024-10-08 13:11 | Outpatient (REF) | payer OTHER, SELFPAY ==
--- OUTSIDE RECORDS SUMMARY | 2024-10-08 13:13 | XMS_ITS | Clinical Summary ---
Author Organization [facility] Address [address] [place] [address] [place] [phone] Phone Care Team Providers Care Grommet Man Name Role Phone Gypsy Matute MD Primary Care Pr ovider Pcp, Unknown Unavailable Unavailable Allergies Active Allergy Reactions Criticality Noted Date Comments Cephalosporins 03/19/2023 Latex 03/19/2023 Social History Tobacco Use Types Packs/Day Years Used Date Smoking Tobacco: Never Smokeless Tobacco: Never Tobacco Cessation:Counseling Given: Not Answered Alcohol Use Standard Drinks/Week Comments Yes 0 (1 standard drink = 0.6 oz pur e alcohol) Education Answer Date Recorded Are you interested in more education? Not on gladys e 03/19/2023 Are you concerned about learning? Not on file 03/19/2023 No 03/19/2023 No 03/19/2023 Digital Access Answer Date Recorded No 03/19/2023 No 03/19/2023 Reliable internet access at home? Not on file 03/19/2023 Device with a working camera? Not on file Intimate Partner Violence Answer Date R ecorded Are you denied basic needs s uch as food, clothing, or medical care? No 03/19/2023 In the past 12 months have y ou been in a relationship with a person who hurts, threatens, or tries to control you? No 03/19/2023 Are you denied basic needs s uch as food, clothing, or medical care? No 03/19/2023 In the past 12 months have y ou been in a relationship with a person who hurts, threatens, or tries to control you? No 03/19/2023 Comments Unknown Sex and Gender Information Value Date Recorded Sex Assigned at Female 03/19/2023 4:37 PM EST Legal Sex Female 3:41 PM EST Gender Identity Female 03/19/2023 4:37 PM EST Sexual Orientation Straight 03/19/2023 4: 37 PM EST Last Filed Vital Signs Vital Sign Reading Time Taken Comments Blood Pressure 127/91 03/19/2023 4:38 PM EST Pulse 104 03/19/2023 4:38 PM EST Temperature 36.5 C (97.7 F) 03/19/2023 4:38 PM EST Respiratory Rate 18 03/19/2023 4:38 PM EST Oxygen Saturation 97% 03/19/2023 4:38 PM EST Inhaled Oxygen Concentration - - Weight 53.5 kg (118 lb) 03/19/2023 4:38 PM EST Height 160 cm (5' 3 ) 03/19/2023 4:38 PM EST Body Mass Index 20.9 03/19/2023 4:38 PM EST Plan of Treatment Not on file Medical Devices Not on file [place] [address] [address] [place] [address] [facility] Address: [place] [address] [facility] [place] [address] [facility] Address: [address] [address] [facility] [place] [address] [place] [address] [place] [address] [place] [address] [place] [place] [address] [facility] Care Teams Grommet Man Relationship Specialty Start Date End Date Gypsy Matute MD [address] [place] [id number] [email or web address] PCP - General Internal Medicine 03/19/23 Pcp, Unknown 03/19/23 Additional Source Comments The information contained in this document represents components of the legal health record. It is not the complete legal health record.[facility]
--- OUTSIDE RECORDS SUMMARY | 2024-10-08 13:13 | XMS_ITS | Data Portability ---
Author Organization [facility] [address] Address [address] [place] [address] Assessment No assessment recorded. Plan of Treatment [...] Out Template NON DOT completed Milena Jalloh [employer] [facility] 09/03/2022 18:31:39 Imaging Results None recorded. [...] SNOMED-CT Code Diagnosis ICD10 Code Diagnosis Note [id number] [facility] [address] [phone] 10/28/2017 18:57:23 10/28/2017 19:55:[id number] [place] [address] [address] [address] 10/05/2015 08:51:10 10/05/2015 10:18:[id number] [place] [address] [address] [address] 11/02/2017 13:45:04 11/02/2017 14:34:[id number] [place] [address] [address] [address] 01/14/2016 14:24:14 01/14/2016 15:00:[id number] [place] [address] [address] [facility] [address] [place] [phone] 05/29/2021 16:17:18 05/29/2021 18:49:27 [id number] L[place] [address] [facility] [address] [place] [address] 09/03/2022 17:33:29 09/03/2022 18:44:20 History and physical examination, occupation 908600180 Z02.1 Health Concerns Section Related Observation LastModified by Organization Detai ls LastModified Time None Recorded Concern Status LastModified by Organization Details LastModified Time None Recorded Advance Directives Directive None Recorded Payers Insurance Date Sequence Insurance Name Policy Number Policy Moreau Covered Member ID Moreau Member ID Guarantor Name 09/03/2022 1 [facility] (MEDICAID HMO) Grisel Sage [id number] Grisel Sage 09/03/2022 [facility] [employer] [facility] Grisel Sage OBGyn Episode No OBEpisode recorded.
--- NOTE | 2024-10-08 13:14 | EMG_ITS ---
Chief complaint: Right hand pain, with some numbness, also right neck pain Reason for referral: Evaluate for Carpal Tunnel Syndrome versus radiculopathy Referred by: Massimo MELENDREZ Procedure done: Right upper extremity NCS/EMG Precautions and/or limitations: None The limb temperature was monitored continuously and remained between 32-36 degrees C during the performance of the NCS. Nerve Conduction Studies Anti Sensory Summary Table ?Stim Site NR Onset (ms) Norm Onset (ms) Peak (ms) Norm Peak (ms) O-P Amp (?V) Norm O-P Amp Site1 Site2 Delta-0 (ms) Dist (cm) Juanito (m/s) Norm Juanito (m/s) Right Median Anti Sensory (2nd Digit) Wrist ? 2.1 3.0 <3.6 60.1 >10 Wrist 2nd Digit 2.1 14.0 67 Right Ulnar Anti Sensory (5th Digit) Wrist ? 2.3 3.2 <3.7 55.4 >15.0 Wrist 5th Digit 2.3 14.0 61 Motor Summary Table ?Stim Site NR Onset (ms) Norm Onset (ms) O-P Amp (mV) Norm O-P Amp iAmp (mV) Amp (1st) (%) Site1 Site2 Delta-0 (ms) Dist (cm) Juanito (m/s) Norm Juanito (m/s) Right Median Motor (Abd Poll Brev) Wrist ? 2.7 <3.9 7.1 >4.5 8.3 100.0 Elbow Wrist 3.8 19.5 51 >45 Elbow ? 6.5 7.0 8.1 98.6 Right Ulnar Motor (Abd Dig Minimi) Wrist ? 2.9 <3.0 12.4 >5 15.5 100.0 B Elbow Wrist 3.0 19.0 63 >45 B Elbow ? 5.9 12.8 15.6 103.2 A Elbow B Elbow 1.4 10.0 71 >45 A Elbow ? 7.3 12.5 15.3 100.8 Comparison Summary Table ?Stim Site NR Peak (ms) Norm Peak (ms) P-T Amp (?V) Site1 Site2 Delta-P (ms) Norm Delta (ms) Right Median/Radial Dig I Comparison (Digit 1 - 10cm) Median ? 2.3 <2.9 105.6 Median Radial -0.2 Radial ? 2.5 <2.8 23.2 EMG ?Side Muscle Nerve Root Ins Act Fibs Psw Amp Dur Poly Recrt Int Pat Comment Right 1stDorInt Ulnar C8-T1 Nml Nml Nml Nml Nml 0 Nml Complete Right FlexCarRad Median C6-7 Nml Nml Nml Nml Nml 0 Nml Complete Right Biceps Musculocut C5-6 Nml Nml Nml Nml Nml 0 Nml Complete Right Triceps Radial C6-7-8 Nml Nml Nml Nml Nml 0 Nml Complete Right Deltoid Axillary C5-6 Nml Nml Nml Nml Nml 0 Nml Complete FINDINGS: All motor and sensory nerves tested showed normal latencies, amplitudes and conduction velocities. Concentric needle EMG was performed in selected muscles of the right upper extremity. Study did not reveal signs of electric abnormalities as shown in the table above. IMPRESSION: 1. This is a normal study. 2. There is no electrodiagnostic evidence for median neuropathy, ulnar neuropathy, brachial plexopathy, or cervical radiculopathy. Thank you for your kind referral. Naz Fisher MD, VILLA Board Certified, [place] [employer] and [employer] (ABPMR) Board Certified, [place] Board of Electrodiagnostic Medicine (ABEM) CODIN [id number] MTDD
== END 2024-10-08 13:12 | disposition home or self-care (01) ==
LOC: HO.NEURO 13:11
DX: R20.0 Anesthesia of skin (principal); R20.2 Paresthesia of skin
CPT/HCPCS: 95886; 95909

== ENCOUNTER → 2024-10-08 13:14 | Outpatient (BNV) | payer OTHER, SELFPAY | PROVIDERS: Visit Provider Physical Medicine & Rehabilitation | DX: R20.0 Anesthesia of skin (principal); R20.2 Paresthesia of skin; M54.2 Cervicalgia; M79.641 Pain in right hand | CPT/HCPCS: 95886; 95909 ==

== ENCOUNTER 2024-10-20 13:07 | Outpatient (AMB) | payer OTHER, SELFPAY ==
[2024-10-20 13:25] VITALS: BMI 21.1
--- NOTE | 2024-10-20 13:25 | MHC.OFFVIS ---
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 Reports her right is worse. Patient was last seen with Ledy Keys who reviewed MRI with patient and advise to follow up with Dr Jennings for further evaluation to discuss treatment options. Right hand EMG was also ordered. IMPRESSION: EMG 1. This is a normal study. 2. There is no electrodiagnostic evidence for median neuropathy, ulnar neuropathy, brachial plexopathy, or cervical radiculopathy. 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 She was referred to us from her primary care physician for her right wrist pain and a cyst on her right thumb. She says that the cyst on her thumb and then the pain that she has over the radial aspect of her right wrist are the most bothersome problems in her right hand and keep her from feeling like she can even use her right hand. She also has some pain in the ulnar aspect of her right wrist. She also has significant issues with anxiety. 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 syndrome IBS (irritable bowel syndrome) Bulky or enlarged uterus Recurrent UTI Vitamin D deficiency Raynauds phenomenon GERD (gastroesophageal reflux disease) ADHD TMJPDS (temporomandibular joint pain dysfunction syndrome) Arthralgia of hands, bilateral Anxiety Insomnia Right flank pain Cheilitis Recurrent infections Mood changes PMDD (premenstrual dysphoric disorder) Renal stones Leukopenia Abnormal thyroid function test Bilateral hand pain Suprapubic cramping Asthma Upper back pain Neck pain Peptic ulcer disease Social History (Updated 10/20/24 @ 13:38 by MALLORIE Grimes) Alcohol intake: current Alcohol intake frequency: holidays/special occasions only Patient Tobacco Use Status: Current everyday Tobacco user e-Cigarette/Vaping Use: Currently Using Substance Use Type: Marijuana Current occupational status: employed 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 Median ulnar radial nerve motor function was grossly intact. Some decreased subjective sensation to the small finger and ulnar aspect of the hand. More normal sensation in the median and superficial radial nerve distributions. No intrinsic or thenar muscle atrophy. Good finger adduction and abduction and good APB muscle belly firing She can make a fist and extend all of her digits without difficulty No locking or catching She does have an approximately 1.7 cm multi lobular cystic mass over the dorsal aspect of her right thumb IP joint. She says it is very tender. There is no surrounding swelling or erythema and she can actively flex and extend it. She is also quite tender over the right 1st dorsal compartment and has a positive Momo test on the right. Momo test on the left creates a pulling sensation up into her forearm which I explained is presumed to be normal as she does not have any complaints on the left side Regarding the ulnar aspect of her wrist she was tender over the distal aspect of the FCU tendon right up against the pisiform. She was also tender just ulnar to the FCU tendon. She had no FCU tenderness. She was not particularly tender over the ECU tendon or the DRUJ. The DRUJ was stable on exam and she had good prono-supination No swelling about the DRUJ. No subluxation of the ECU tendon. Smooth wrist flexion and extension Resisted wrist flexion causes some discomfort at the distal aspect of the FCU tendon EMG nerve conduction study: IMPRESSION: 1. This is a normal study. 2. There is no electrodiagnostic evidence for median neuropathy, ulnar neuropathy, brachial plexopathy, or cervical radiculopathy. Thank you for your kind referral. Naz Fisher MD, VILLA Board Certified, [place] Board of [employer] Medicine and Rehabilitation (ABPMR) Board Certified, [place] Board of Electrodiagnostic Medicine (ABEM) Dictated By: Naz Cummings 10/08/24 1344 The actual MRI from [facility] was unavailable for me to review. The following are from the radiology reports on these 2 MRIs. Please see the reports for additional information as necessary.: From outside report of MRI of right hand 08/02/2024: Impression 1. No evidence of erosive osteoarthritis 2. Degenerative changes in trapezium metacarpal joint and 1st interphalangeal joint 3. Cystic lesion adjacent to 1st interphalangeal joint, likely ganglion cyst. Jose Thakur MD [facility] diagnostic imaging From outside report of MRI of right wrist 08/02/2024: Regarding triangular fibrocartilage: Distortion due to negative ulnar variance. Irregular tear of disc. No detachment. Soft tissues: Lobular 1.4 x 1.2 x 2.4 cm ganglion cyst deep to extensor digitorum tendons at the level of the intercarpal joint. Impression: 1. No evidence of erosive osteoarthritis 2. Negative ulnar variance with the associated TFC tear. (Dr. Jennings note: Please see his more detail comments about the TFCC above where he talks about distortion due to negative ulnar variance, an irregular tear of the disc, but no detachment) Jose Thakur MD [facility] diagnostic imaging Assessment & Plan Assessment & Plan (1) De Quervain's tenosynovitis, right: Code(s): M65.4 - Radial styloid tenosynovitis [de Quervain] Category: Medical (2) Ganglion cyst of finger of right hand: Code(s): M67.441 - Ganglion, right hand Category: Medical (3) Right wrist pain: Code(s): M25.531 - Pain in right wrist Category: Medical Plan Assessment and plan: 1. Right thumb dorsal IP joint cystic mass Painful to the patient 2. Right de Quervain tenosynovitis I offered her a steroid injection but she became very anxious, started to cry and so that she could not/would not have an injection today. She would like to get some Ativan from her primary care provider and have somebody come as a support person for her. She says that she passes out with the injections and would need to be placed supine on a bed. This is not a problem. 3. Ulnar-sided wrist pain appears to be localized to distal aspect of FCU tendon, and is more mild than the above to conditions per patient No clinical evidence of TFCC tear I educated the patient about these conditions. I talked to her at length about the injection, the surgery etc. and came to the conclusion that she is not going to be able to tolerate procedures under local anesthesia well. She will likely need general anesthesia for surgery. The plan is to bring her back in 2-3 weeks to discuss a steroid injection for de Quervain tenosynovitis. She is going to try and get some Ativan from her primary care provider her normally provides her this and she will have a support person with her. I strongly suggest that she be put supine while giving her the injection. We should then wait 6-8 weeks to see how well this works for her de Quervain tenosynovitis. At that time if she still has symptoms of de Quervain tenosynovitis we could consider possible 1st dorsal compartment release scheduled at the same time as a right dorsal thumb mass excision to be done under general anesthesia. She is happy with this plan. She understands that we are not keeping her out of work at this time. We will keep her out of work for a period after surgery. If she needed to we could potentially put her on light duty for her de Quervain tenosynovitis. She says that her primary care physician his keeping her out of work at this time. Greater than 60 minutes was spent with this patient reviewing the studies, reviewing various notes, interviewing the patient, examining the patient and formulating a treatment plan. This was all reviewed with the patient as well. Coding Level of Care Code Est Pt Level 5 (13595) Diagnoses De Quervain's tenosynovitis, right M65.4 Ganglion cyst of finger of right hand M67.441 Right wrist pain M25.531
--- OUTSIDE RECORDS SUMMARY | 2024-10-20 13:41 | XMS_ITS | Clinical Summary ---
Author Organization [facility] Address [address] [place] [address] [place] [phone] Phone Care Team Providers Care Surgery Scheduling Coordinator Name Role Phone Gypsy Matute MD Primary [...] file Medical Devices Not on file [place] [address] [facility] [place] [address] [facility] [address] [address] [address] [place] [address] [place] [address] [facility] Care Teams Surgery Scheduling Coordinator Relationship Specialty Start Date End Date Gypsy Matute MD [address] [place] [id number] [email or web address] PCP - General Internal Medicine 03/19/23 Pcp, Unknown 03/19/23 Additional Source Comments The information contained in this document represents components of the legal health record. It is not the complete legal health record.[facility]
== END 2024-10-20 14:41 | disposition home or self-care (01) ==
LOC: HO.HOS 13:07
PROVIDERS: PCP Internal Medicine; Visit Provider Orthopaedic Surgery
DX: M65.4 Radial styloid tenosynovitis [de Quervain] (principal); M67.441 Ganglion, right hand; M25.531 Pain in right wrist
CPT/HCPCS: 99215

== ENCOUNTER → 2024-10-20 13:07 | Outpatient (BNVA) | payer OTHER, SELFPAY | PROVIDERS: PCP Internal Medicine; Visit Provider Orthopaedic Surgery | DX: M25.531 Pain in right wrist (principal); M65.4 Radial styloid tenosynovitis [de Quervain]; M67.441 Ganglion, right hand | CPT/HCPCS: 99212 ==